=== PATIENT | male | born 1950 | race Hispanic/Latino ===

== ENCOUNTER → 2018-10-20 | Outpatient (CLI) | payer MEDICARE | END | disposition home or self-care (01) | LOC: SHCH 10:02 | PROVIDERS: ATTEND Internal Medicine Cardiovascular Disease | DX: I87.2 Venous insufficiency (chronic) (peripheral) (principal) | CPT/HCPCS: 93970 ==

== ENCOUNTER → 2018-11-28 | Outpatient (CLI) | payer MEDICARE | END | disposition home or self-care (01) | LOC: SHCH 09:53 | PROVIDERS: ATTEND Internal Medicine Cardiovascular Disease | DX: I10 Essential (primary) hypertension (principal); R60.9 Edema, unspecified | CPT/HCPCS: 93306 ==

== ENCOUNTER 2021-04-30 22:53 | Emergency (ER) | payer MEDICARE ==
[~2021-04-30] VITALS: Ht 175.3 cm; Wt 110.7 kg
[2021-04-30 23:04] VITALS: BP 157/82
== END 2021-05-01 00:58 | disposition home or self-care (01) ==
LOC: EDH 23:03
DX: I83.91 Asymptomatic varicose veins of right lower extremity (principal); I10 Essential (primary) hypertension

== ENCOUNTER 2021-10-07 06:39 | Emergency (ER) | payer MEDICARE ==
[~2021-10-07] VITALS: Ht 175.3 cm; Wt 117.9 kg
[2021-10-07 06:48] VITALS: BP 138/76
== END 2021-10-07 07:04 | disposition home or self-care (01) ==
LOC: EDH 06:39
DX: I83.891 Varicose veins of right lower extremity with other complications (principal); I11.0 Hypertensive heart disease with heart failure; I50.9 Heart failure, unspecified

== ENCOUNTER 2021-11-02 20:46 | Emergency (ER) | payer MEDICARE ==
[~2021-11-02] VITALS: Ht 175.3 cm; Wt 124.3 kg
[2021-11-02] MEDS ORDERED: ACETAMINOPHEN 325 MG TAB PO ONE (21:30)
[2021-11-02 21:37] LABS: BASOPHILS % (AUTO) 0.5 % (0.0-5.0); EOSINOPHILS % (AUTO) 2.3 % (0.0-8.0); HEMATOCRIT 42.4 % (42-54); LYMPHOCYTES % (AUTO) 16.5 % (21.0-51.0); MEAN CORPUSCULAR HEMOGLOBIN 30.1 pg (27.0-33.0); MEAN CORPUSCULAR HGB CONC 32.5 g/dL (32.0-36.0); MEAN CORPUSCULAR VOLUME 92.6 fL (79-99); MONOCYTES % (AUTO) 10.2 % (3.0-13.0); NEUTROPHILS % (AUTO) 70.2 % (40.0-77.0); PLATELET COUNT (AUTO) 226 K/uL (130-400); RED BLOOD CELL COUNT(AUTO) 4.58 MIL/uL (4.50-6.20); RED CELL DISTRIBUTION WIDTH 13.8 % (11.0-15.5); WHITE BLOOD COUNT (AUTO) 7.9 K/uL (4.8-10.8)
[2021-11-02 21:54] LABS: APPEARANCE,URINE Cloudy (CLEAR); BILIRUBIN,URINE Negative (NEGATIVE); COLOR,URINE Dark Yellow (YELLOW); GLUCOSE, URINE (UA) Negative (NEGATIVE); KETONES,URINE Negative (NEGATIVE); LEUKOCYTE ESTERASE ,URINE Small (NEGATIVE); NITRATE,URINE Negative (NEGATIVE); OCCULT BLOOD,URINE Nonhemolyzed Trace (NEGATIVE); PH,URINE 5.5 (5.0-8.0); PROTEIN,URINE Negative (NEGATIVE)
[2021-11-02 21:57] LABS: CREATININE 1.1 mg/dL (0.5-1.5); POTASSIUM 4.7 mmol/L (3.5-5.1)
[2021-11-02 22:00] LABS: ALBUMIN 3.5 g/dL (3.5-5.0); BILIRUBIN,TOTAL 0.6 mg/dL (0.2-1.0); TOTAL PROTEIN, SERUM 7.4 g/dL (6.0-8.3)
[2021-11-02] MEDS ORDERED: HYDRALAZINE HCL 10 MG TABLET PO SCH (22:00)
[2021-11-02 22:01] LABS: B-TYPE NATRIURETIC PEPTIDE 95 pg/mL (0-100)
[2021-11-02 22:02] LABS: BACTERIA,URINE Few /HPF (None Seen); RBC,URINE 0-1 /HPF (0-1); SQUAMOUS EPITHELIAL CELL,UR Few /HPF (0-2); YEAST,URINE BUDDING Rare /HPF (None Seen)
[2021-11-02 22:04] LABS: MUCUS,URINE Moderate LPF (None Seen)
[2021-11-02 22:08] VITALS: BP 142/78
[2021-11-02] MEDS ORDERED: FLUCONAZOLE 100 MG TAB PO ONE (22:30)
== END 2021-11-02 22:54 | disposition home or self-care (01) ==
LOC: EDH 20:46
DX: I11.0 Hypertensive heart disease with heart failure (principal); I50.9 Heart failure, unspecified; R60.0 Localized edema
CPT/HCPCS: 36415; 80053; 81001; 83880; 84484; 85025; 87088

== ENCOUNTER 2022-07-19 11:00 | Emergency (ER) | payer MEDICARE ==
[~2022-07-19] VITALS: Ht 175.3 cm; Wt 120.7 kg
[2022-07-19 11:53] LABS: BASOPHILS % (AUTO) 0.6 % (0.0-5.0); EOSINOPHILS % (AUTO) 2.1 % (0.0-8.0); HEMATOCRIT 43.5 % (42-54); LYMPHOCYTES % (AUTO) 12.1 % (21.0-51.0); MEAN CORPUSCULAR HEMOGLOBIN 31.7 pg (27.0-33.0); MEAN CORPUSCULAR HGB CONC 34.9 g/dL (32.0-36.0); MEAN CORPUSCULAR VOLUME 90.6 fL (79-99); MONOCYTES % (AUTO) 8.5 % (3.0-13.0); NEUTROPHILS % (AUTO) 76.3 % (40.0-77.0); PLATELET COUNT (AUTO) 307 K/uL (130-400); RED CELL DISTRIBUTION WIDTH 13.2 % (11.0-15.5); WHITE BLOOD COUNT (AUTO) 9.8 K/uL (4.8-10.8)
[2022-07-19 11:59] LABS: APPEARANCE,URINE CLEAR (CLEAR); BILIRUBIN,URINE NEGATIVE (NEGATIVE); COLOR,URINE YELLOW (YELLOW); GLUCOSE, URINE (UA) NEGATIVE (NEGATIVE); KETONES,URINE NEGATIVE (NEGATIVE); LEUKOCYTE ESTERASE ,URINE NEGATIVE (NEGATIVE); NITRATE,URINE NEGATIVE (NEGATIVE); OCCULT BLOOD,URINE NEGATIVE (NEGATIVE); PROTEIN,URINE NEGATIVE (NEGATIVE); UROBILINOGEN,URINE 0.2 mg/dL (0.2-1.0)
[2022-07-19 12:07] LABS: ALBUMIN 3.6 g/dL (3.5-5.0); POTASSIUM 4.5 mmol/L (3.5-5.1); TOTAL PROTEIN, SERUM 7.5 g/dL (6.0-8.3)
[2022-07-19 12:29] LABS: B-TYPE NATRIURETIC PEPTIDE 20 pg/mL (0-100)
[2022-07-19 12:39] VITALS: BP 132/74
[2022-07-19] MEDS ORDERED: 0.9% NACL 500ML IV.SOLN 500 ML IV ONE (13:30)
[2022-07-19] MEDS ORDERED: IPRATROPIUM/ALBUTEROL SULFATE 3 ML SOLUTION IH ONE (14:00)
[2022-07-19] MEDS ORDERED: AMOX1TAB16 PO (14:17)
== END 2022-07-19 14:25 | disposition home or self-care (01) ==
LOC: EDH 11:00
DX: R06.02 Shortness of breath (principal); H66.91 Otitis media, unspecified, right ear; Z20.822 Contact with and (suspected) exposure to COVID-19; E78.00 Pure hypercholesterolemia, unspecified; I10 Essential (primary) hypertension; E86.0 Dehydration
CPT/HCPCS: 99285; 84484; 80053; 83880; 85025; 81003; 36415; 87635; 71045; 96360; 93005; C9803; J7040

== ENCOUNTER → 2022-10-26 | Outpatient (CLI) | payer MEDICARE ==
[~2022-10-26] MED LIST: AMOX1TAB16 PO; IOHEXOL 350 MG/ML 100ML INFUS..BTL IV ONE
== END | disposition home or self-care (01) ==
LOC: RAH 07:29
PROVIDERS: ATTEND Internal Medicine
DX: C20 Malignant neoplasm of rectum (principal); K43.9 Ventral hernia without obstruction or gangrene
CPT/HCPCS: 71270; 74178; Q9967

== ENCOUNTER → 2022-11-09 | Outpatient (CLI) | payer MEDICARE ==
[~2022-11-09] MED LIST changes: +GADOTERATE MEGLUMINE 10 MMOL/20 ML VIAL IV ONE; -IOHEXOL 350 MG/ML 100ML INFUS..BTL IV ONE
== END | disposition home or self-care (01) ==
LOC: RAH 11:19
PROVIDERS: ATTEND Internal Medicine Gastroenterology
DX: C20 Malignant neoplasm of rectum (principal); K62.4 Stenosis of anus and rectum; M25.451 Effusion, right hip
CPT/HCPCS: 72197; A9575

== ENCOUNTER 2024-01-24 10:49 | Observation (INO) | payer MEDICARE ==
[~2024-01-24] VITALS: Ht 175.3 cm; Wt 103.8 kg
[~2024-01-24 10:49] MED LIST changes: -GADOTERATE MEGLUMINE 10 MMOL/20 ML VIAL IV ONE
[2024-01-24 11:49] LABS: BASOPHILS # (AUTO) 0.02 K/uL (0.00-0.20); BASOPHILS % (AUTO) 0.4 % (0.0-5.0); EOSINOPHILS # (AUTO) 0.17 K/uL (0.00-0.70); HEMATOCRIT 40.6 % (42-54); IMMATURE GRANULOCYTE ABSOLUTE 0.01 K/uL (0-1); LYMPHOCYTES # (AUTO) 0.5 K/uL (1.0-4.8); LYMPHOCYTES % (AUTO) 8.9 % (21.0-51.0); MEAN CORPUSCULAR HEMOGLOBIN 33.6 pg (27.0-33.0); MEAN CORPUSCULAR HGB CONC 33.5 g/dL (32.0-36.0); MEAN CORPUSCULAR VOLUME 100.2 fL (79-99); MONOCYTES # (AUTO) 0.6 K/uL (0.1-1.0); MONOCYTES % (AUTO) 10.4 % (3.0-13.0); NEUTROPHILS # (AUTO) 4.3 K/uL (1.8-7.7); NEUTROPHILS % (AUTO) 77.1 % (40.0-77.0); PLATELET COUNT (AUTO) 198 K/uL (130-400); RED BLOOD CELL COUNT(AUTO) 4.05 MIL/uL (4.50-6.20); RED CELL DISTRIBUTION WIDTH 12.9 % (11.0-15.5); WHITE BLOOD COUNT (AUTO) 5.6 K/uL (4.8-10.8)
[2024-01-24] MEDS ORDERED: CARB100T52 PO (11:51)
[2024-01-24] MEDS ORDERED: LISI20TA24 PO (11:51)
[2024-01-24] MEDS ORDERED: METO2.5T2 PO (11:51)
[2024-01-24] MEDS ORDERED: FURO40TA5 PO (11:51)
[2024-01-24] MEDS ORDERED: ONDA-105 PO (11:51)
[2024-01-24 11:59] LABS: CREATININE 0.7 mg/dL (0.5-1.5); POTASSIUM 3.8 mmol/L (3.5-5.1)
[2024-01-24] MEDS ORDERED: ONDANSETRON 4MG TABLET PO PRN (12:00)
[2024-01-24 12:12] LABS: ALBUMIN 3.1 g/dL (3.5-5.0); B-TYPE NATRIURETIC PEPTIDE 56 pg/mL (0-100); BILIRUBIN,DIRECT 0.1 mg/dL (0.0-0.3); BILIRUBIN,TOTAL 0.3 mg/dL (0.2-1.0); THYROID STIMULATING HORMONE 2.55 uIU/mL (0.36-3.74)
[2024-01-24 16:00] VITALS: O2SAT 98
[2024-01-24 16:25] VITALS: BP 149/96; PULSE 100; RESP 17
[2024-01-24] MEDS: METOPROLOL TARTRATE 25 MG TAB PO SCH (16:47)
[2024-01-24 19:25] VITALS: BP 133/79; PULSE 91; RESP 18
[2024-01-24] MEDS: HEPARIN 25,000 UNITS/250ML D5W 250 ML IV SCH (20:35)
[2024-01-24] MEDS: HEPARIN 5,000 UNIT VIAL IV PRN (20:39)
[2024-01-24] MEDS: CARBAMAZEPINE 100 MG PO SCH (20:59)
[2024-01-25] VITALS (10 sets, daily range): BP systolic 108–157; BP diastolic 68–108; PULSE 46–104; RESP 18–20; O2SAT 97–98
[2024-01-25 02:37] LABS: BASOPHILS # (AUTO) 0.03 K/uL (0.00-0.20); BASOPHILS % (AUTO) 0.5 % (0.0-5.0); EOSINOPHILS # (AUTO) 0.25 K/uL (0.00-0.70); EOSINOPHILS % (AUTO) 4.4 % (0.0-8.0); HEMATOCRIT 38.3 % (42-54); IMMATURE GRANULOCYTE ABSOLUTE 0.03 K/uL (0-1); LYMPHOCYTES # (AUTO) 0.6 K/uL (1.0-4.8); LYMPHOCYTES % (AUTO) 9.7 % (21.0-51.0); MEAN CORPUSCULAR HEMOGLOBIN 33.6 pg (27.0-33.0); MEAN CORPUSCULAR HGB CONC 34.5 g/dL (32.0-36.0); MEAN CORPUSCULAR VOLUME 97.5 fL (79-99); MONOCYTES # (AUTO) 0.6 K/uL (0.1-1.0); MONOCYTES % (AUTO) 10.6 % (3.0-13.0); NEUTROPHILS # (AUTO) 4.2 K/uL (1.8-7.7); NEUTROPHILS % (AUTO) 74.3 % (40.0-77.0); PLATELET COUNT (AUTO) 198 K/uL (130-400); RED BLOOD CELL COUNT(AUTO) 3.93 MIL/uL (4.50-6.20); RED CELL DISTRIBUTION WIDTH 12.8 % (11.0-15.5); WHITE BLOOD COUNT (AUTO) 5.7 K/uL (4.8-10.8)
[2024-01-25 02:45] LABS: CREATININE 0.7 mg/dL (0.5-1.5); MAGNESIUM 1.7 mg/dL (1.80-2.40); POTASSIUM 3.8 mmol/L (3.5-5.1)
[2024-01-25] MEDS: FUROSEMIDE 40 MG TABLET PO SCH (09:10)
[2024-01-25] MEDS: LISINOPRIL 20 MG TABLET PO SCH (09:10)
[2024-01-25] MEDS: METOLAZONE 2.5 MG TABLET PO SCH (09:10)
[2024-01-25] MEDS: METOPROLOL SUCCINATE 50 MG TAB.SR.24H PO ONE (14:03)
[2024-01-25] MEDS: HEPARIN 25,000 UNITS/250ML D5W 250 ML IV ONE (14:13)
[2024-01-25] MEDS: APIXABAN 5 MG TABLET PO SCH (20:28)
[2024-01-26 03:40] VITALS: BP 112/74; PULSE 67; RESP 18
[2024-01-26 04:43] LABS: BASOPHILS # (AUTO) 0.03 K/uL (0.00-0.20); BASOPHILS % (AUTO) 0.5 % (0.0-5.0); EOSINOPHILS # (AUTO) 0.21 K/uL (0.00-0.70); EOSINOPHILS % (AUTO) 3.5 % (0.0-8.0); IMMATURE GRANULOCYTE ABSOLUTE 0.02 K/uL (0-1); LYMPHOCYTES # (AUTO) 0.5 K/uL (1.0-4.8); LYMPHOCYTES % (AUTO) 8.8 % (21.0-51.0); MEAN CORPUSCULAR HGB CONC 33.6 g/dL (32.0-36.0); MEAN CORPUSCULAR VOLUME 98.4 fL (79-99); MONOCYTES # (AUTO) 0.8 K/uL (0.1-1.0); MONOCYTES % (AUTO) 13.1 % (3.0-13.0); NEUTROPHILS # (AUTO) 4.4 K/uL (1.8-7.7); NEUTROPHILS % (AUTO) 73.8 % (40.0-77.0); PLATELET COUNT (AUTO) 226 K/uL (130-400); RED BLOOD CELL COUNT(AUTO) 4.27 MIL/uL (4.50-6.20); RED CELL DISTRIBUTION WIDTH 12.9 % (11.0-15.5)
[2024-01-26 04:53] LABS: CREATININE 0.8 mg/dL (0.5-1.5); MAGNESIUM 1.9 mg/dL (1.80-2.40); POTASSIUM 3.8 mmol/L (3.5-5.1)
[2024-01-26 08:00] VITALS: BP 139/63; PULSE 54; RESP 20; O2SAT 97
[2024-01-26] MEDS ORDERED: POTASSIUM CHLORIDE 20MEQ/100ML 100 ML IV PRN (08:00)
[2024-01-26] MEDS ORDERED: POTASSIUM CHLORIDE 10% ELIXIR 20 MEQ/15 ML UDCUP PO PRN (08:00)
[2024-01-26] MEDS ORDERED: MAGNESIUM 2GM PREMIX 50ML 50 ML IV PRN (08:00)
[2024-01-26] MEDS: METOPROLOL SUCCINATE 50 MG TAB.SR.24H PO SCH (08:33)
[2024-01-26] MEDS: KCL 20 MEQ ERTAB PO PRN (08:33)
[2024-01-26] MEDS ORDERED: APIX5TAB PO (10:45)
[2024-01-26] MEDS ORDERED: METO-391 PO (10:45)
== END 2024-01-26 11:15 | disposition home or self-care (01) ==
LOC: EDH 10:49 → EDHIP 11:11 → 3AH 14:54
PROVIDERS: ADMIT Internal Medicine; ATTEND Internal Medicine
DX: I48.3 Typical atrial flutter (principal); E87.1 Hypo-osmolality and hyponatremia; I11.9 Hypertensive heart disease without heart failure; E78.5 Hyperlipidemia, unspecified; I87.2 Venous insufficiency (chronic) (peripheral); J44.9 Chronic obstructive pulmonary disease, unspecified; C18.9 Malignant neoplasm of colon, unspecified; D64.9 Anemia, unspecified; E66.9 Obesity, unspecified; Z68.33 Body mass index [BMI] 33.0-33.9, adult
CPT/HCPCS: 96376; 96365; 96366 ×3; 84443; 80076; 80048 ×3; 83880; 85025 ×3; 85730 ×4; 36415 ×3; 71046; 93306; 93005; 83735 ×2; G0378 ×46; G0379; J1644 ×4

== ENCOUNTER → 2024-01-31 | Outpatient (CLI) | payer MEDICARE ==
[~2024-01-31] MED LIST changes: -AMOX1TAB16 PO; +APIX5TAB PO; +CARB100T52 PO; +FURO40TA5 PO; +LISI20TA24 PO; +METO-391 PO
[2024-01-31] MEDS: REGADENOSON 0.4 MG/5 ML PF SYG IVP ONE (09:22)
== END ==
LOC: SHCH 08:03
PROVIDERS: ATTEND Internal Medicine Cardiovascular Disease
DX: I25.10 Atherosclerotic heart disease of native coronary artery without angina pectoris (principal)
CPT/HCPCS: 78452; 96374; 93017; J2785; A9500 ×2

== ENCOUNTER 2024-06-06 18:39 | Emergency (ER) | payer MEDICARE ==
[~2024-06-06] VITALS: Ht 175.3 cm; Wt 97.1 kg
[~2024-06-06 18:39] MED LIST changes: -CARB100T52 PO; +CARB100T61 PO; +DIPH-1150 PO; -FURO40TA5 PO; +FURO40TA7 PO; +METO2.5T2 PO; +ONDA-245 SL
[2024-06-06] MEDS: MORPHINE 4 MG SYG IVP ONE (19:59)
[2024-06-06] MEDS: ONDANSETRON 4MG INJ IVP ONE (19:59)
[2024-06-06 20:07] LABS: BASOPHILS # (AUTO) 0.03 K/uL (0.00-0.20); BASOPHILS % (AUTO) 0.4 % (0.0-5.0); EOSINOPHILS # (AUTO) 0.58 K/uL (0.00-0.70); EOSINOPHILS % (AUTO) 7.7 % (0.0-8.0); IMMATURE GRANULOCYTE ABSOLUTE 0.06 K/uL (0-1); LYMPHOCYTES # (AUTO) 0.5 K/uL (1.0-4.8); LYMPHOCYTES % (AUTO) 6.6 % (21.0-51.0); MEAN CORPUSCULAR HEMOGLOBIN 30.9 pg (27.0-33.0); MEAN CORPUSCULAR HGB CONC 33.1 g/dL (32.0-36.0); MEAN CORPUSCULAR VOLUME 93.3 fL (79-99); MONOCYTES # (AUTO) 0.6 K/uL (0.1-1.0); MONOCYTES % (AUTO) 7.4 % (3.0-13.0); NEUTROPHILS # (AUTO) 5.8 K/uL (1.8-7.7); NEUTROPHILS % (AUTO) 77.1 % (40.0-77.0); PLATELET COUNT (AUTO) 295 K/uL (130-400); RED BLOOD CELL COUNT(AUTO) 3.43 MIL/uL (4.50-6.20); RED CELL DISTRIBUTION WIDTH 13.8 % (11.0-15.5); WHITE BLOOD COUNT (AUTO) 7.6 K/uL (4.8-10.8)
[2024-06-06 20:17] LABS: INR 0.99 (0.85-1.15); PROTHROMBIN TIME 10.7 SEC (9.6-11.6)
[2024-06-06 20:18] LABS: PARTIAL THROMBOPLASTIN TIME 29.4 SEC (26.3-35.5)
[2024-06-06 20:20] LABS: POTASSIUM 4.5 mmol/L (3.5-5.1)
[2024-06-06 20:26] LABS: ALBUMIN 2.8 g/dL (3.5-5.0); BILIRUBIN,TOTAL 0.5 mg/dL (0.2-1.0)
[2024-06-06 20:54] VITALS: BP 116/54; PULSE 67; RESP 17; O2SAT 98
== END 2024-06-06 21:14 | disposition home or self-care (01) ==
LOC: EDH 18:39
DX: K94.09 Other complications of colostomy (principal)
CPT/HCPCS: 99284; 96374; 96375; 84484; 80053; 85025; 85610; 85730; 36415; 93005; J2405; J2270

== ENCOUNTER 2024-06-08 13:55 | Emergency (ER) | payer MEDICARE ==
[~2024-06-08] VITALS: Ht 175.3 cm; Wt 98.4 kg
[2024-06-08 15:10] LABS: BASOPHILS # (AUTO) 0.05 K/uL (0.00-0.20); BASOPHILS % (AUTO) 0.7 % (0.0-5.0); EOSINOPHILS # (AUTO) 0.44 K/uL (0.00-0.70); EOSINOPHILS % (AUTO) 6.2 % (0.0-8.0); HEMATOCRIT 32.4 % (42-54); IMMATURE GRANULOCYTE ABSOLUTE 0.08 K/uL (0-1); LYMPHOCYTES # (AUTO) 0.6 K/uL (1.0-4.8); MEAN CORPUSCULAR HEMOGLOBIN 31.1 pg (27.0-33.0); MEAN CORPUSCULAR HGB CONC 32.4 g/dL (32.0-36.0); MEAN CORPUSCULAR VOLUME 95.9 fL (79-99); MONOCYTES # (AUTO) 0.5 K/uL (0.1-1.0); MONOCYTES % (AUTO) 7.4 % (3.0-13.0); NEUTROPHILS # (AUTO) 5.5 K/uL (1.8-7.7); NEUTROPHILS % (AUTO) 76.6 % (40.0-77.0); PLATELET COUNT (AUTO) 339 K/uL (130-400); RED BLOOD CELL COUNT(AUTO) 3.38 MIL/uL (4.50-6.20); RED CELL DISTRIBUTION WIDTH 13.9 % (11.0-15.5); WHITE BLOOD COUNT (AUTO) 7.1 K/uL (4.8-10.8)
[2024-06-08 15:19] LABS: POTASSIUM 4.7 mmol/L (3.5-5.1)
[2024-06-08 15:21] LABS: INR 0.97 (0.85-1.15); PROTHROMBIN TIME 10.5 SEC (9.6-11.6)
[2024-06-08 15:22] LABS: PARTIAL THROMBOPLASTIN TIME 27.1 SEC (26.3-35.5)
[2024-06-08] MEDS: HYDROMORPHONE 0.5 MG SYG (0.5MG/0.5ML) IVP ONE (15:56)
[2024-06-08 16:22] VITALS: BP 104/55; PULSE 85; RESP 20; O2SAT 100
== END 2024-06-08 16:42 | disposition home or self-care (01) ==
LOC: EDH 13:55
DX: K94.19 Other complications of enterostomy (principal); I10 Essential (primary) hypertension; Z79.899 Other long term (current) drug therapy; Z98.890 Other specified postprocedural states
CPT/HCPCS: 99283; 96374; 80048; 85025; 85610; 85730; 36415; J1170

== ENCOUNTER 2024-06-08 19:47 | Emergency (ER) | payer MEDICARE ==
[~2024-06-08] VITALS: Ht 175.3 cm; Wt 98.4 kg
[2024-06-08 21:19] VITALS: BP 91/56; PULSE 86; RESP 16; O2SAT 97
== END 2024-06-08 21:40 | disposition home or self-care (01) ==
LOC: EDH 19:47
DX: K94.19 Other complications of enterostomy (principal); I10 Essential (primary) hypertension; Z79.899 Other long term (current) drug therapy; Z98.890 Other specified postprocedural states
CPT/HCPCS: 99281

== ENCOUNTER → 2024-06-25 | Outpatient (CLI) | payer MEDICARE | END | disposition home or self-care (01) | LOC: RAH 08:45 | PROVIDERS: ATTEND Surgery | DX: C20 Malignant neoplasm of rectum (principal); K94.10 Enterostomy complication, unspecified; K63.89 Other specified diseases of intestine | CPT/HCPCS: 74270; Q9958 ==

== ENCOUNTER 2024-06-30 10:02 | Inpatient (IN) | payer MEDICARE ==
[~2024-06-30] VITALS: Ht 175.3 cm; Wt 92.1 kg
[2024-06-30] VITALS (34 sets, daily range): BP systolic 66–147; BP diastolic 40–76; PULSE 63–87; RESP 14–23; O2SAT 94–98
[2024-06-30] MEDS: FAMOTIDINE 20MG VIAL IV ONE (10:51)
[2024-06-30] MEDS: 0.9%NACL 1000ML 1,000 ML IV ONE ×2 (10:51→14:48)
[2024-06-30] MEDS: ONDANSETRON 4MG INJ IVP ONE (10:51)
[2024-06-30 10:55] LABS: BASOPHILS # (AUTO) 0.02 K/uL (0.00-0.20); BASOPHILS % (AUTO) 0.2 % (0.0-5.0); EOSINOPHILS # (AUTO) 0.03 K/uL (0.00-0.70); EOSINOPHILS % (AUTO) 0.3 % (0.0-8.0); HEMATOCRIT 30.5 % (42-54); IMMATURE GRANULOCYTE ABSOLUTE 0.03 K/uL (0-1); LYMPHOCYTES # (AUTO) 0.6 K/uL (1.0-4.8); LYMPHOCYTES % (AUTO) 6.1 % (21.0-51.0); MEAN CORPUSCULAR HEMOGLOBIN 31.2 pg (27.0-33.0); MEAN CORPUSCULAR HGB CONC 33.8 g/dL (32.0-36.0); MEAN CORPUSCULAR VOLUME 92.4 fL (79-99); MONOCYTES # (AUTO) 0.6 K/uL (0.1-1.0); MONOCYTES % (AUTO) 6.4 % (3.0-13.0); NEUTROPHILS # (AUTO) 8.6 K/uL (1.8-7.7); NEUTROPHILS % (AUTO) 86.7 % (40.0-77.0); PLATELET COUNT (AUTO) 265 K/uL (130-400); RED CELL DISTRIBUTION WIDTH 14.1 % (11.0-15.5); WHITE BLOOD COUNT (AUTO) 9.9 K/uL (4.8-10.8)
[2024-06-30 11:08] LABS: ALBUMIN 3.2 g/dL (3.5-5.0); BILIRUBIN,TOTAL 0.3 mg/dL (0.2-1.0); CREATININE 6.9 mg/dL (0.5-1.3); TOTAL PROTEIN, SERUM 7.2 g/dL (6.0-8.3)
[2024-06-30 11:17] LABS: POTASSIUM 8.1 mmol/L (3.5-5.1)
[2024-06-30] MEDS ORDERED: IOHEXOL-350 75 ML VIAL IV ONE (11:31)
[2024-06-30 11:45] LABS: APPEARANCE,URINE CLEAR (CLEAR); BILIRUBIN,URINE NEGATIVE (NEGATIVE); COLOR,URINE LIGHT-YELLOW (YELLOW); GLUCOSE, URINE (UA) NEGATIVE (NEGATIVE); KETONES,URINE NEGATIVE (NEGATIVE); LEUKOCYTE ESTERASE ,URINE NEGATIVE Leu/uL (NEGATIVE); NITRATE,URINE NEGATIVE (NEGATIVE); OCCULT BLOOD,URINE NEGATIVE (NEGATIVE); PROTEIN,URINE 20 mg/dL (NEGATIVE); UROBILINOGEN,URINE 0.2 mg/dL (0.2-1.0)
[2024-06-30 11:47] LABS: ADD UA MICROSCOPIC YES
[2024-06-30 11:53] LABS: BACTERIA,URINE RARE /HPF (None Seen); MUCUS,URINE RARE LPF (None Seen); RBC,URINE 0-1 /HPF (0-1); SQUAMOUS EPITHELIAL CELL,UR RARE /HPF (0-2); WBC,URINE 0-1 /HPF (0-1)
[2024-06-30 11:56] LABS: ALBUMIN 3.1 g/dL (3.5-5.0); BILIRUBIN,TOTAL 0.3 mg/dL (0.2-1.0); CREATININE 6.3 mg/dL (0.5-1.3); TOTAL PROTEIN, SERUM 6.8 g/dL (6.0-8.3)
[2024-06-30 12:03] LABS: POTASSIUM 7.9 mmol/L (3.5-5.1)
[2024-06-30] MEDS: CALCIUM GLUC 1GM 1 GM in 0.9%NACL 100ML 100 ML IV ONE (12:14)
[2024-06-30] MEDS: DEXTROSE 50%-WATER 50 ML DISP.SYRIN IV ONE (12:15)
[2024-06-30] MEDS: DEXTROSE 50%-WATER 25 GM/50 ML VIAL IV ONE (12:16)
[2024-06-30] MEDS: CALCIUM GLUC 1GM/10ML VIAL ONE (12:17)
[2024-06-30] MEDS: INSULIN humuLIN R 100 UNIT/ML 3ML IV ONE (12:22)
[2024-06-30] MEDS: ALBUTEROL 0.083% 2.5 MG/3 ML INH IH SCH (12:25)
[2024-06-30] MEDS: NOREPINEPHRIN 4MG/NS 250ML 250 ML IV SCH (12:32)
[2024-06-30 13:04] LABS: CREATINE KINASE, TOTAL 63 U/L (21-232)
[2024-06-30 13:24] LABS: ACETAMINOPHEN < 1 mcg/mL (10-29); SALICYLATE < 2.8 mg/dL (2.8-20.0)
[2024-06-30 13:24] LABS: AMPHET/METH SCREEN,URINE NEGATIVE (NEGATIVE); BARBITURATE SCREEN, URINE NEGATIVE (NEGATIVE); BENZODIAZEPINES SCREEN,URINE NEGATIVE (NEGATIVE); CANNABINOID SCREEN,URINE NEGATIVE (NEGATIVE); COCAINE SCREEN,URINE POSITIVE (NEGATIVE); OPIATE SCREEN,URINE NEGATIVE (NEGATIVE); PHENCYCLIDINE SCREEN,URINE NEGATIVE (NEGATIVE)
[2024-06-30] MEDS: ZOSYN 3.375GM +NS 50ML IV ONE (14:48)
[2024-06-30] MEDS: 0.9%NACL 1000ML 1,000 ML IV SCH (15:15)
[2024-06-30 15:19] LABS: CREATININE 5.4 mg/dL (0.5-1.3)
[2024-06-30 15:34] LABS: POTASSIUM 6.2 mmol/L (3.5-5.1)
[2024-06-30] MEDS: cefTRIAXone 1G VIAL IVPB SCH (15:40)
[2024-06-30] MEDS: NA ZIRCON CYCLOSIL(LOKELMA 10GM) PO ONE (15:40)
[2024-06-30] MEDS ORDERED: ESOM40CA66 PO (17:09)
[2024-06-30] MEDS ORDERED: DICY20TA3 PO (17:09)
[2024-06-30] MEDS: SODIUM BICARB 8.4% 50ML SYRING 150 MEQ in DEXTROSE 5%-WATER 850 ML IVP SCH (17:13)
[2024-06-30 17:42] LABS: CREATININE 4.8 mg/dL (0.5-1.3)
[2024-06-30] MEDS ORDERED: ONDANSETRON 4MG INJ IVP PRN (19:30)
[2024-06-30] MEDS ORDERED: DEXTROSE 50%-WATER 50 ML DISP.SYRIN IV PRN (19:30)
[2024-06-30] MEDS ORDERED: GLUCAGON 1MG KIT 1 MG ML IM PRN (19:30)
[2024-06-30] MEDS: ZOSYN 3.375GM +NS 50ML IV SCH (20:12)
[2024-06-30] MEDS: INSULIN humuLIN R 100 UNIT/ML 3ML SQ SCH (20:13)
[2024-06-30] MEDS: HEParin 5,000 UNIT VIAL SQ SCH (20:29)
[2024-06-30 20:31] LABS: CREATININE 4.1 mg/dL (0.5-1.3); POTASSIUM 5.2 mmol/L (3.5-5.1)
[2024-06-30 21:03] LABS: CHLORIDE,URINE RANDOM 52 mmol/L (110-250); CREATININE,URINE RANDOM 140.34 mg/dL (30-135); POTASSIUM,URINE RANDOM 47 mmol/L (25-125); SODIUM,URINE RANDOM < 13 mmol/l (40-220)
[2024-07-01] VITALS (103 sets, daily range): BP systolic 61–138; BP diastolic 31–84; PULSE 60–94; RESP 12–28; O2SAT 95–98
[2024-07-01 01:00] LABS: CREATININE 3.3 mg/dL (0.5-1.3); POTASSIUM 4.8 mmol/L (3.5-5.1)
[2024-07-01] MEDS: NOREPINEPHRIN 4MG/NS 250ML 250 ML IV ONE (02:03)
[2024-07-01 04:23] LABS: BASOPHILS # (AUTO) 0.04 K/uL (0.00-0.20); BASOPHILS % (AUTO) 0.5 % (0.0-5.0); EOSINOPHILS # (AUTO) 0.04 K/uL (0.00-0.70); EOSINOPHILS % (AUTO) 0.5 % (0.0-8.0); HEMATOCRIT 28.9 % (42-54); IMMATURE GRANULOCYTE ABSOLUTE 0.03 K/uL (0-1); LYMPHOCYTES # (AUTO) 0.5 K/uL (1.0-4.8); LYMPHOCYTES % (AUTO) 5.9 % (21.0-51.0); MEAN CORPUSCULAR HEMOGLOBIN 31.4 pg (27.0-33.0); MEAN CORPUSCULAR HGB CONC 34.9 g/dL (32.0-36.0); MEAN CORPUSCULAR VOLUME 89.8 fL (79-99); MONOCYTES # (AUTO) 0.8 K/uL (0.1-1.0); NEUTROPHILS # (AUTO) 6.6 K/uL (1.8-7.7); NEUTROPHILS % (AUTO) 82.7 % (40.0-77.0); PLATELET COUNT (AUTO) 247 K/uL (130-400); RED BLOOD CELL COUNT(AUTO) 3.22 MIL/uL (4.50-6.20); RED CELL DISTRIBUTION WIDTH 13.9 % (11.0-15.5)
[2024-07-01 04:56] LABS: B-TYPE NATRIURETIC PEPTIDE 260 pg/mL (0-100)
[2024-07-01 05:09] LABS: ALBUMIN 2.9 g/dL (3.5-5.0); BILIRUBIN,TOTAL 0.5 mg/dL (0.2-1.0); CREATININE 2.8 mg/dL (0.5-1.3); MAGNESIUM 1.4 mg/dL (1.80-2.40); PHOSPHORUS 5.5 mg/dL (2.5-4.9); POTASSIUM 5.1 mmol/L (3.5-5.1); THYROID STIMULATING HORMONE 1.53 uIU/mL (0.36-3.74); TOTAL PROTEIN, SERUM 6.7 g/dL (6.0-8.3)
[2024-07-01] MEDS: NOREPINEPHRIN 4MG/NS 250ML 250 ML IV SCH (06:58)
[2024-07-01 08:36] LABS: CREATININE 2.2 mg/dL (0.5-1.3); POTASSIUM 4.4 mmol/L (3.5-5.1)
[2024-07-01] MEDS: PANTOPRAZOLE 40 MG/VIAL IVP SCH (08:57)
[2024-07-01] MEDS: metOPROLol sucCINATE 50 MG TAB.SR.24H PO SCH (08:58)
[2024-07-01] MEDS: MAGNESIUM 2GM PREMIX 50ML 50 ML IV SCH (09:02)
[2024-07-01] MEDS: 0.9%NACL 1000ML 1,000 ML IV SCH (11:41)
[2024-07-01] MEDS: MIDODRINE HCL 5 MG TABLET PO SCH (14:19)
[2024-07-02] VITALS (52 sets, daily range): BP systolic 77–132; BP diastolic 38–83; PULSE 60–84; RESP 13–50; O2SAT 97–99
[2024-07-02 03:47] LABS: BASOPHILS # (AUTO) 0.03 K/uL (0.00-0.20); BASOPHILS % (AUTO) 0.5 % (0.0-5.0); EOSINOPHILS # (AUTO) 0.08 K/uL (0.00-0.70); EOSINOPHILS % (AUTO) 1.2 % (0.0-8.0); IMMATURE GRANULOCYTE ABSOLUTE 0.03 K/uL (0-1); LYMPHOCYTES # (AUTO) 0.5 K/uL (1.0-4.8); LYMPHOCYTES % (AUTO) 7.1 % (21.0-51.0); MEAN CORPUSCULAR HEMOGLOBIN 30.9 pg (27.0-33.0); MEAN CORPUSCULAR HGB CONC 34.2 g/dL (32.0-36.0); MEAN CORPUSCULAR VOLUME 90.3 fL (79-99); MONOCYTES # (AUTO) 0.7 K/uL (0.1-1.0); MONOCYTES % (AUTO) 11.1 % (3.0-13.0); NEUTROPHILS # (AUTO) 5.2 K/uL (1.8-7.7); NEUTROPHILS % (AUTO) 79.6 % (40.0-77.0); PLATELET COUNT (AUTO) 211 K/uL (130-400); RED BLOOD CELL COUNT(AUTO) 2.88 MIL/uL (4.50-6.20); RED CELL DISTRIBUTION WIDTH 14.3 % (11.0-15.5); WHITE BLOOD COUNT (AUTO) 6.6 K/uL (4.8-10.8)
[2024-07-02 04:05] LABS: % IRON SATURATION 41.9 % (30-44)
[2024-07-02 04:27] LABS: CREATININE 1.4 mg/dL (0.5-1.3); MAGNESIUM 1.5 mg/dL (1.80-2.40); POTASSIUM 4.2 mmol/L (3.5-5.1)
[2024-07-02] MEDS: FOLic ACID 5 MG/ML VIAL IV SCH (08:34)
[2024-07-02] MEDS: THIAMINE HCL 100 MG/ML 2ML VIAL IVP SCH (08:34)
[2024-07-02] MEDS: metOPROLol sucCINATE 50 MG TAB.SR.24H PO SCH (09:00)
[2024-07-02] MEDS: octREOtide aceTATe 100 MCG/ML AMP IV SCH (20:40)
[2024-07-03] VITALS (17 sets, daily range): BP systolic 101–153; BP diastolic 47–77; PULSE 59–81; RESP 14–23; O2SAT 96–98
[2024-07-03 04:49] LABS: BASOPHILS # (AUTO) 0.02 K/uL (0.00-0.20); BASOPHILS % (AUTO) 0.3 % (0.0-5.0); EOSINOPHILS # (AUTO) 0.16 K/uL (0.00-0.70); EOSINOPHILS % (AUTO) 2.1 % (0.0-8.0); HEMATOCRIT 25.3 % (42-54); IMMATURE GRANULOCYTE ABSOLUTE 0.03 K/uL (0-1); LYMPHOCYTES # (AUTO) 0.6 K/uL (1.0-4.8); LYMPHOCYTES % (AUTO) 7.9 % (21.0-51.0); MEAN CORPUSCULAR HEMOGLOBIN 31.5 pg (27.0-33.0); MEAN CORPUSCULAR VOLUME 92.7 fL (79-99); MONOCYTES # (AUTO) 0.7 K/uL (0.1-1.0); MONOCYTES % (AUTO) 9.9 % (3.0-13.0); NEUTROPHILS # (AUTO) 5.9 K/uL (1.8-7.7); NEUTROPHILS % (AUTO) 79.4 % (40.0-77.0); PLATELET COUNT (AUTO) 210 K/uL (130-400); RED BLOOD CELL COUNT(AUTO) 2.73 MIL/uL (4.50-6.20); RED CELL DISTRIBUTION WIDTH 14.4 % (11.0-15.5); WHITE BLOOD COUNT (AUTO) 7.5 K/uL (4.8-10.8)
[2024-07-03 05:06] LABS: CREATININE 1.2 mg/dL (0.5-1.3); MAGNESIUM 1.3 mg/dL (1.80-2.40); PHOSPHORUS 2.7 mg/dL (2.5-4.9); POTASSIUM 3.7 mmol/L (3.5-5.1)
[2024-07-03] MEDS: metOPROLol sucCINATE 25 MG TAB.SR.24H PO SCH (09:00)
[2024-07-04 00:02] VITALS: BP 127/56; PULSE 66; RESP 18
[2024-07-04 04:00] VITALS: BP 124/66; PULSE 69; RESP 18
[2024-07-04 04:13] LABS: BASOPHILS # (AUTO) 0.02 K/uL (0.00-0.20); BASOPHILS % (AUTO) 0.3 % (0.0-5.0); EOSINOPHILS # (AUTO) 0.18 K/uL (0.00-0.70); EOSINOPHILS % (AUTO) 2.7 % (0.0-8.0); HEMATOCRIT 25.2 % (42-54); IMMATURE GRANULOCYTE ABSOLUTE 0.03 K/uL (0-1); LYMPHOCYTES # (AUTO) 0.5 K/uL (1.0-4.8); LYMPHOCYTES % (AUTO) 7.5 % (21.0-51.0); MEAN CORPUSCULAR HEMOGLOBIN 30.3 pg (27.0-33.0); MEAN CORPUSCULAR HGB CONC 32.9 g/dL (32.0-36.0); MONOCYTES # (AUTO) 0.6 K/uL (0.1-1.0); MONOCYTES % (AUTO) 9.1 % (3.0-13.0); NEUTROPHILS # (AUTO) 5.4 K/uL (1.8-7.7); PLATELET COUNT (AUTO) 238 K/uL (130-400); RED BLOOD CELL COUNT(AUTO) 2.74 MIL/uL (4.50-6.20); RED CELL DISTRIBUTION WIDTH 14.1 % (11.0-15.5); WHITE BLOOD COUNT (AUTO) 6.8 K/uL (4.8-10.8)
[2024-07-04 04:31] LABS: MAGNESIUM 1.3 mg/dL (1.80-2.40); PHOSPHORUS 2.1 mg/dL (2.5-4.9)
[2024-07-04 07:00] VITALS: BP 136/56; PULSE 69; RESP 20
[2024-07-04 08:00] VITALS: O2SAT 98
[2024-07-04] MEDS ORDERED: COMPOUND IV REFRIGERATED 1 EACH IVSOLN MISC PRN (08:30)
[2024-07-04] MEDS ORDERED: COMPOUND IV MISC 1 EACH IVSOLN MISC PRN (08:30)
[2024-07-04 11:00] VITALS: BP 138/64; PULSE 75; RESP 20
== END 2024-07-04 13:25 | disposition home or self-care (01) | DRG 682 ==
LOC: EDH 10:02 → EDHIP 14:42 → 2CH 15:40 → 2DH 07-03 18:47
PROVIDERS: ADMIT Internal Medicine; ATTEND Internal Medicine
DX: N17.9 Acute kidney failure, unspecified (principal); K85.90 Acute pancreatitis without necrosis or infection, unspecified; R57.1 Hypovolemic shock; I50.32 Chronic diastolic (congestive) heart failure; I13.0 Hypertensive heart and chronic kidney disease with heart failure and stage 1 through stage 4 chronic kidney disease, or unspecified chronic kidney disease; E87.20 Acidosis, unspecified; E87.1 Hypo-osmolality and hyponatremia; E86.0 Dehydration; E87.5 Hyperkalemia; N18.30 Chronic kidney disease, stage 3 unspecified; I48.91 Unspecified atrial fibrillation; I87.2 Venous insufficiency (chronic) (peripheral); E78.5 Hyperlipidemia, unspecified; K59.00 Constipation, unspecified; I25.10 Atherosclerotic heart disease of native coronary artery without angina pectoris; I95.9 Hypotension, unspecified; F14.10 Cocaine abuse, uncomplicated; E66.9 Obesity, unspecified; D63.8 Anemia in other chronic diseases classified elsewhere; E88.09 Other disorders of plasma-protein metabolism, not elsewhere classified; E87.6 Hypokalemia; E87.8 Other disorders of electrolyte and fluid balance, not elsewhere classified; Z68.32 Body mass index [BMI] 32.0-32.9, adult; Z93.2 Ileostomy status; Z93.3 Colostomy status; Z92.3 Personal history of irradiation; Z85.048 Personal history of other malignant neoplasm of rectum, rectosigmoid junction, and anus; Z79.01 Long term (current) use of anticoagulants; Z92.21 Personal history of antineoplastic chemotherapy; Z79.899 Other long term (current) drug therapy
CPT/HCPCS: 36415; 71045; 74176; 80048; 80051; 80053; 80061; 80305; 81001; 82150; 82550; 82570; 82728; 82948; 83540; 83550; 83690; 83735; 83880; 83935; 84100; 84145; 84443; 84484; 84540; 85025; 87040; 87086; 93005; 93306; 93356; 94640; 99291; A4344; G0378; G0481; J0612; J0696; J1644; J1815; J2354; J2405; J2470; J2543; J3411; J3475; J3490; J7030; J7070; Q9967

== ENCOUNTER 2024-07-18 07:21 | Day surgery (SDC) | payer MEDICARE ==
[~2024-07-18] VITALS: Ht 175.3 cm; Wt 98.9 kg
[2024-07-18] VITALS (10 sets, daily range): BP systolic 87–116; BP diastolic 48–68; PULSE 63–76; RESP 14–18; TEMP 96–97.8
[2024-07-18] MEDS: 0.9%NACL 1000ML 1,000 ML IV ONE (08:00)
[2024-07-18] MEDS ORDERED: CARB100T61 PO (08:07)
[2024-07-18] MEDS ORDERED: METO-391 PO (08:07)
[2024-07-18] MEDS ORDERED: FURO40TA5 PO (08:07)
[2024-07-18] MEDS ORDERED: DIPH-1150 PO (08:07)
[2024-07-18] MEDS ORDERED: APIX5TAB PO (08:07)
[2024-07-18] MEDS ORDERED: LIDOCAINE PF 100MG/5ML (2%) SYRINGE 5ML ONE (09:12)
[2024-07-18] MEDS ORDERED: proPOFol 10 MG/ML 20ML VIAL IV ONE (09:12)
[2024-07-18] MEDS ORDERED: LISI20TA24 PO (10:09)
== END 2024-07-18 10:35 | disposition home or self-care (01) ==
LOC: DAH 07:21 → ENDO 07:21
PROVIDERS: ATTEND Surgery
DX: C20 Malignant neoplasm of rectum (principal); R93.3 Abnormal findings on diagnostic imaging of other parts of digestive tract; I10 Essential (primary) hypertension; E66.9 Obesity, unspecified; J44.9 Chronic obstructive pulmonary disease, unspecified; K94.10 Enterostomy complication, unspecified; Z68.31 Body mass index [BMI] 31.0-31.9, adult; Z79.899 Other long term (current) drug therapy
CPT/HCPCS: 45330; J7030; J2001; J2704; A4620; A4615; A4215 ×2; A4223; A4222; A4221; A4663; A4606; J3490

== ENCOUNTER 2024-08-01 14:05 | Inpatient (IN) | payer MEDICARE ==
[2024-07-31 11:19] LABS: BASOPHILS # (AUTO) 0.02 K/uL (0.00-0.20); BASOPHILS % (AUTO) 0.3 % (0.0-5.0); EOSINOPHILS # (AUTO) 0.15 K/uL (0.00-0.70); EOSINOPHILS % (AUTO) 2.3 % (0.0-8.0); IMMATURE GRANULOCYTE ABSOLUTE 0.03 K/uL (0-1); LYMPHOCYTES # (AUTO) 0.7 K/uL (1.0-4.8); LYMPHOCYTES % (AUTO) 10.2 % (21.0-51.0); MEAN CORPUSCULAR HEMOGLOBIN 31.4 pg (27.0-33.0); MEAN CORPUSCULAR HGB CONC 31.5 g/dL (32.0-36.0); MEAN CORPUSCULAR VOLUME 99.7 fL (79-99); MONOCYTES # (AUTO) 0.5 K/uL (0.1-1.0); MONOCYTES % (AUTO) 7.7 % (3.0-13.0); NEUTROPHILS # (AUTO) 5.1 K/uL (1.8-7.7); PLATELET COUNT (AUTO) 247 K/uL (130-400); RED BLOOD CELL COUNT(AUTO) 3.31 MIL/uL (4.50-6.20); WHITE BLOOD COUNT (AUTO) 6.5 K/uL (4.8-10.8)
[2024-07-31 11:25] LABS: INR 0.95 (0.85-1.15); PROTHROMBIN TIME 10.3 SEC (9.6-11.6)
[2024-07-31 11:26] LABS: PARTIAL THROMBOPLASTIN TIME 29.2 SEC (26.3-35.5)
[2024-07-31 11:27] LABS: ALBUMIN 3.2 g/dL (3.5-5.0); BILIRUBIN,TOTAL 0.4 mg/dL (0.2-1.0); CREATININE 0.8 mg/dL (0.5-1.3); POTASSIUM 4.6 mmol/L (3.5-5.1); TOTAL PROTEIN, SERUM 7.2 g/dL (6.0-8.3)
[2024-07-31 11:41] VITALS: BP 155/75; PULSE 71; RESP 18; TEMP 98.2
[~2024-08-01] VITALS: Ht 175.3 cm; Wt 98.5 kg
[~2024-08-01 14:05] MED LIST changes: -DIPH-1150 PO; +FURO40TA5 PO; -FURO40TA7 PO; -METO2.5T2 PO; -ONDA-245 SL
[2024-08-08] VITALS (22 sets, daily range): BP systolic 111–133; BP diastolic 53–72; PULSE 60–79; RESP 15–20; TEMP 97.5–98.1
[2024-08-08] MEDS ORDERED: BUPIvacaine/PF 0.5% 30ML VIAL ONE (10:30)
[2024-08-08] MEDS ORDERED: LIDOCAINE 1%-EPI 1:100,000 20 ML VIAL ONE (10:30)
[2024-08-08] MEDS ORDERED: LIDOCAINE PF 100MG/5ML (2%) SYRINGE 5ML ONE ×2 (10:58→12:28)
[2024-08-08] MEDS ORDERED: proPOFol 10 MG/ML 20ML VIAL IV ONE ×2 (10:58→12:29)
[2024-08-08] MEDS ORDERED: rocuRONium bROMide 10MG/1ML 5ML VL ONE ×2 (10:58→12:29)
[2024-08-08] MEDS ORDERED: FENTanyl CITRate PF 50 MCG/1 ML 2ML VIAL ONE ×2 (10:59→12:29)
[2024-08-08] MEDS: INVANZ 1GM+NS 50ML IVPB 50 ML IV ONE ×2 (11:00→17:55)
[2024-08-08] MEDS: LACTATED RINGERS 1000ML 1,000 ML IV ONE (11:22)
[2024-08-08] MEDS ORDERED: dexaMETHasone SOD PHOSPHATE 10MG/ML 1ML VIAL ONE ×2 (12:28→17:00)
[2024-08-08] MEDS ORDERED: SUCCINYLCHOLINE CHLORIDE 20 MG/ML 10 ML VIAL ONE (12:29)
[2024-08-08] MEDS ORDERED: MIDAZOLAM HCL 1 MG/ML 2ML VIAL ONE ×2 (12:29→16:08)
[2024-08-08] MEDS ORDERED: GLYCOPYRROLATE 0.2 MG/ML 5 ML VIAL ONE ×2 (12:29→17:11)
[2024-08-08] MEDS ORDERED: ondanSETRON 4MG INJ ONE ×2 (12:29→17:01)
[2024-08-08] MEDS ORDERED: NEOSTIGMINE METHYLSULFATE 1MG/ML IV ONE ×2 (12:29→17:11)
[2024-08-08] MEDS ORDERED: ketaMINE 50MG/ML SYRINGE 50 MG/ML DISP.SYRIN ONE (13:21)
[2024-08-08] MEDS ORDERED: ALBUMIN (HUMAN) 5% 250 ML IV ONE ×2 (13:22→16:35)
[2024-08-08 13:34] LABS: CREATININE 0.7 mg/dL (0.5-1.3); POTASSIUM 4.1 mmol/L (3.5-5.1)
[2024-08-08] MEDS ORDERED: morPHINE 2 MG SYG IV PRN (16:00)
[2024-08-08] MEDS ORDERED: ondanSETRON 4MG INJ IVP PRN (16:00)
[2024-08-08] MEDS ORDERED: HYDROcodone/APAP 5/325 1 TAB TABLET PO PRN (16:00)
[2024-08-08] MEDS ORDERED: acetaMINOPHEN 325 MG TAB PO PRN (16:00)
[2024-08-08] MEDS ORDERED: INSULIN humuLIN R 100 UNIT/ML 3ML SQ PRN (16:00)
[2024-08-08] MEDS: BUPIvacaine/PF 0.5% 30ML VIAL ONE (16:41)
[2024-08-08] MEDS: LIDOCAINE 1%-EPI 1:100,000 20 ML VIAL ONE (16:41)
[2024-08-08] MEDS: acetaMINOPHEN 1,000 MG/100 ML VIAL IV ONE (17:55)
[2024-08-08] MEDS: FAMOTIDINE 20MG VIAL IV ONE (17:56)
[2024-08-08] MEDS: FAMOTIDINE 20MG VIAL IV SCH (19:57)
[2024-08-08] MEDS: D5W-1/2 NS/20MEQ KCL 1,000 ML IV SCH (19:58)
[2024-08-09] VITALS (9 sets, daily range): BP systolic 118–148; BP diastolic 60–72; PULSE 72–79; RESP 18–24; TEMP 97.8–98.3; O2SAT 94–95
[2024-08-09 06:06] LABS: BASOPHILS # (AUTO) 0.01 K/uL (0.00-0.20); BASOPHILS % (AUTO) 0.1 % (0.0-5.0); HEMATOCRIT 31.3 % (42-54); IMMATURE GRANULOCYTE ABSOLUTE 0.03 K/uL (0-1); LYMPHOCYTES # (AUTO) 0.3 K/uL (1.0-4.8); MEAN CORPUSCULAR HEMOGLOBIN 31.5 pg (27.0-33.0); MEAN CORPUSCULAR HGB CONC 31.9 g/dL (32.0-36.0); MEAN CORPUSCULAR VOLUME 98.7 fL (79-99); MONOCYTES # (AUTO) 0.3 K/uL (0.1-1.0); MONOCYTES % (AUTO) 4.4 % (3.0-13.0); NEUTROPHILS % (AUTO) 91.1 % (40.0-77.0); PLATELET COUNT (AUTO) 277 K/uL (130-400); RED BLOOD CELL COUNT(AUTO) 3.17 MIL/uL (4.50-6.20); RED CELL DISTRIBUTION WIDTH 15.1 % (11.0-15.5); WHITE BLOOD COUNT (AUTO) 7.7 K/uL (4.8-10.8)
[2024-08-09 06:21] LABS: CREATININE 0.8 mg/dL (0.5-1.3); POTASSIUM 4.4 mmol/L (3.5-5.1)
[2024-08-09] MEDS: ENOXAPARIN SODIUM 40 MG/0.4 ML SYRINGE SQ SCH (09:03)
[2024-08-09] MEDS: metOPROLol sucCINATE 50 MG TAB.SR.24H PO SCH (09:04)
[2024-08-09] MEDS: LISINOPRIL 20 MG TABLET PO SCH (09:04)
[2024-08-09] MEDS: furoSEMIDE 40 MG TABLET PO SCH (09:04)
[2024-08-09] MEDS ORDERED: PHARMACY COMMUNICATION 1 EACH EACH MISC SCH (17:00)
[2024-08-09] MEDS: morPHINE 4 MG SYG IV PRN (21:15)
[2024-08-10] VITALS: BP 124/66; PULSE 66; RESP 22; TEMP 98
[2024-08-10 04:00] VITALS: BP 134/73; PULSE 75; RESP 20; TEMP 98.3
[2024-08-10 05:00] LABS: BASOPHILS # (AUTO) 0.02 K/uL (0.00-0.20); BASOPHILS % (AUTO) 0.2 % (0.0-5.0); EOSINOPHILS # (AUTO) 0.02 K/uL (0.00-0.70); EOSINOPHILS % (AUTO) 0.2 % (0.0-8.0); HEMATOCRIT 32.6 % (42-54); IMMATURE GRANULOCYTE ABSOLUTE 0.03 K/uL (0-1); LYMPHOCYTES # (AUTO) 0.4 K/uL (1.0-4.8); LYMPHOCYTES % (AUTO) 5.1 % (21.0-51.0); MEAN CORPUSCULAR HEMOGLOBIN 32.8 pg (27.0-33.0); MEAN CORPUSCULAR HGB CONC 33.4 g/dL (32.0-36.0); MEAN CORPUSCULAR VOLUME 98.2 fL (79-99); MONOCYTES # (AUTO) 0.7 K/uL (0.1-1.0); MONOCYTES % (AUTO) 7.9 % (3.0-13.0); NEUTROPHILS # (AUTO) 7.2 K/uL (1.8-7.7); NEUTROPHILS % (AUTO) 86.2 % (40.0-77.0); PLATELET COUNT (AUTO) 242 K/uL (130-400); RED BLOOD CELL COUNT(AUTO) 3.32 MIL/uL (4.50-6.20); RED CELL DISTRIBUTION WIDTH 14.8 % (11.0-15.5); WHITE BLOOD COUNT (AUTO) 8.3 K/uL (4.8-10.8)
[2024-08-10 05:13] LABS: CREATININE 0.8 mg/dL (0.5-1.3); POTASSIUM 3.7 mmol/L (3.5-5.1)
[2024-08-10 07:59] VITALS: BP 118/72; PULSE 69; RESP 18; TEMP 98.4
[2024-08-10 08:00] VITALS: O2SAT 95
[2024-08-10 11:40] VITALS: BP 118/58; PULSE 72; RESP 16; TEMP 98
== END 2024-08-10 13:50 | disposition home or self-care (01) | DRG 330 ==
LOC: DAHIP 08-08 10:13 → 3CH 08-08 18:40
PROVIDERS: ADMIT Surgery; ATTEND Surgery
PROC: 0DBB0ZZ Excision of Ileum, Open Approach (ICD-10-PCS; principal; 2024-08-08 16:18)
DX: Z43.2 Encounter for attention to ileostomy (principal); C20 Malignant neoplasm of rectum; K63.5 Polyp of colon; J44.9 Chronic obstructive pulmonary disease, unspecified; E66.9 Obesity, unspecified; Z68.32 Body mass index [BMI] 32.0-32.9, adult
CPT/HCPCS: 36415; 80048; 80053; 85025; 85610; 85730; 86850; 86900; 86901; 93005; A4344; A4606; G0378; J0330; J1100; J1335; J1650; J2001; J2250; J2270; J2405; J2704; J2710; J3010; J3480; J3490; J7120; P9045; A4215; A4216; A4221; A4222; A4223; A4600; A4663; A4930; A6260; J0665

== ENCOUNTER 2025-11-05 20:16 | Inpatient (IN) | payer MEDICARE, MEDICAID ==
[~2025-11-05] VITALS: Ht 172.7 cm; Wt 106.8 kg
[2025-11-05 21:16] LABS: IMMATURE GRANULOCYTE ABSOLUTE 0.04 K/uL (0-1); NUCLEATED RED BLOOD CELLS 0.0 % (0.0-0.19); PLATELET COUNT (AUTO) 250 K/uL (130-400); RED BLOOD CELL COUNT(AUTO) 4.80 MIL/uL (4.50-6.20); RED CELL DISTRIBUTION WIDTH 14.2 % (11.0-15.5); WHITE BLOOD COUNT (AUTO) 11.3 K/uL (4.8-10.8)
[2025-11-05 21:24] LABS: CREATININE 0.8 mg/dL (0.5-1.3); GLOMERULAR FILTR. RATE CALC 91.0 mL/min (>90); GLUCOSE,RANDOM 109.0 mg/dL (70-105); SODIUM SERUM 128.0 mmol/L (136-145); UREA NITROGEN, BLOOD 9.0 mg/dL (7-18)
[2025-11-05 22:05] LABS: ADD UA MICROSCOPIC YES; APPEARANCE,URINE CLEAR (CLEAR); GLUCOSE, URINE (UA) NEGATIVE (NEGATIVE); LEUKOCYTE ESTERASE ,URINE NEGATIVE Leu/uL (NEGATIVE); NITRATE,URINE NEGATIVE (NEGATIVE); OCCULT BLOOD,URINE SMALL (NEGATIVE)
[2025-11-05 22:06] LABS: SQUAMOUS EPITHELIAL CELL,UR RARE /HPF (0-2)
--- NOTE | 2025-11-05 22:15 | ERN ---
ED Note History of Present Illness Stated Complaint: RUQ PAIN Chief Complaint: Abdominal Pain Time Seen by MD: 20:33 Dictation: This is a 75-year-old male who presented to the emergency room with complaints of right upper quadrant pain right lower quadrant pain with nausea vomitings. He went to [facility] and was told it could be appendicitis and referred him to the ER. Patient came in with his sister who is his provider patient stated that he had abdominal surgery [address] Nixon No fever chills or rigors. No diarrhea Temperature 99.1 pulse 86 respirations 20 blood pressure 144/74 with a pulse oximetry of 97% on room air History of hypertension, colon cancer status post resection Allergies: Coded Allergies: No Known Drug Allergies (Unverified Allergy, Unknown, 10/07/21) Home Meds Reported Medications Lisinopril (Lisinopril) 20 Mg Tablet, 20 MG PO AM, TAB 07/18/24 Apixaban (Eliquis) 5 Mg Tablet, 5 MG PO BID, TAB 07/18/24 Furosemide (Furosemide) 40 Mg Tablet, 40 MG PO DAILY, TAB 07/18/24 Carbamazepine (Carbamazepine ER) 100 Mg Tab.er.12h, 100 MG PO BID, TAB 07/18/24 Metoprolol Succinate (Metoprolol Succinate) 50 Mg Tab.er.24h, 50 MG PO DAILY, TAB 07/18/24 Past Medical History Past Medical History: Cancer, Hypertension Additional Past Medical Hx: COLON CA, Surgical History: Other Surgical History Other: COLON RESECTION Family History: Negative Social History: Drugs (Cocaine abuse), Lives with family, Other RN Note Reviewed/Agreed w/PFSH: Yes Review of System Dictation Constitutional: Negative for fever,chills, and weight loss Eyes: Negative for injury, pain,redness, and discharge ENT: Negative for injury,pain or swelling Cardiovascular: Negative for chest pain, palpitations, and edema Respiratory: Negative for shortness of breath, cough, and wheezing, Abdomen/GI: Positive for abdominal pain, nausea, vomiting, denied diarrhea, and constipation Back: Negative for injury and pain : Negative for injury, bleeding and discharge MS/Extremity: Negative for injury and deformity Skin: Negative for rash, and discoloration Neuro: Negative for headache, weakness, numbness, tingling, and seizure Psych: Negative for suicide ideation, homicidal ideation, and hallucinations Initial Vital Sign VS Vital Signs Date Time Temp Pulse Resp B/P (MAP) Pulse Ox O2 Delivery O2 Flow Rate FiO2 11/05/25 20:19 99.1 86 20 144/74 97 Room Air 0 Physical Exam Dictation General: awake, alert, NAD obese male appears much older Head/Face: Normocephalic, atraumatic Eyes: PERRL, EOMI, vision at baseline ENT: oral cavity clear, TMs clear, no signs of infection Neck: Trachea midline, supple, no nuchal rigidity Cardiovascular: RRR, normal S1/S2, No MRGs, no JVD Respiratory: CTAB, no respiratory distress, No rales or wheezes Abdomen: Soft, mild tenderness to palpation, markedly distended, normal bowel sounds, no guarding or rebound. Right-sided large oval to round area of erythema and scarring from his previous ileostomy. Skin: Warm, dry, normal turgor, no rash MS/Extremity: Pulses equal, no cyanosis, neurovascular intact, FROM Neuro: COAx4, GCS 15, strength 5/5, CN 2-12 intact, normal cerebellar exam, normal gait, Psych: Normal behavior, mood, and affect normal Extremities-trace edema without any palpable cords, Homans sign is negative Results (Laboratory/Radiology) Laboratory/Radiology Laboratory Tests Test 11/05/25 21:05 11/05/25 21:54 White Blood Count 11.3 K/uL (4.8-10.8) H Red Blood Count 4.80 MIL/uL (4.50-6.20) Hemoglobin 14.3 g/dL (14.0-18.0) Hematocrit 43.2 % (42-54) Mean Corpuscular Volume 90.0 fL (79-99) Mean Corpuscular Hemoglobin 29.8 pg (27.0-33.0) Mean Corpuscular Hemoglobin Concent 33.1 g/dL (32.0-36.0) Red Cell Distribution Width 14.2 % (11.0-15.5) Platelet Count 250 K/uL (130-400) Mean Platelet Volume 8.8 fL (7.5-10.5) Immature Granulocyte % (Auto) 0.4 % (0-1) Neutrophils (%) (Auto) 83.5 % (40.0-77.0) H Lymphocytes (%) (Auto) 7.0 % (21.0-51.0) L Monocytes (%) (Auto) 7.8 % (3.0-13.0) Eosinophils (%) (Auto) 1.1 % (0.0-8.0) Basophils (%) (Auto) 0.2 % (0.0-5.0) Neutrophils # (Auto) 9.5 K/uL (1.8-7.7) H Lymphocytes # (Auto) 0.8 K/uL (1.0-4.8) L Monocytes # (Auto) 0.9 K/uL (0.1-1.0) Eosinophils # (Auto) 0.13 K/uL (0.00-0.70) Basophils # (Auto) 0.02 K/uL (0.00-0.20) Absolute Immature Granulocyte (auto 0.04 K/uL (0-1) Nucleated Red Blood Cells 0.0 % (0.0-0.19) White Cell Morphology Comment See comments Sodium Level 128 mmol/L (136-145) L Potassium Level 4.4 mmol/L (3.5-5.1) Chloride Level 95 mmol/L (101-111) L Carbon Dioxide Level 27 mmol/L (21-32) Blood Urea Nitrogen 9 mg/dL (7-18) Creatinine 0.8 mg/dL (0.5-1.3) Glomerular Filtration Rate Calc 91 mL/min (>90) Random Glucose 109 mg/dL (70-105) H Total Calcium 8.9 mg/dL (8.5-10.1) Lipase 30 U/L (16-77) Urine Color LIGHT-YELLOW (YELLOW) Urine Appearance CLEAR (CLEAR) Urine pH 6.5 (5.0-8.0) Urine Specific [place] 1.018 (1.001-1.031) Urine Protein NEGATIVE mg/dL (NEGATIVE) Urine Glucose (UA) NEGATIVE mg/dL (NEGATIVE) Urine Ketones NEGATIVE mg/dL (NEGATIVE) Urine Occult Blood SMALL (NEGATIVE) H Urine Nitrate NEGATIVE (NEGATIVE) Urine Bilirubin NEGATIVE mg/dL (NEGATIVE) Urine Urobilinogen 0.2 mg/dL (0.2-1.0) Urine Leukocyte Esterase NEGATIVE [place]/uL Urine RBC 11-25 /HPF (0-1) H Urine WBC 0-1 /HPF (0-1) Urine Squamous Epithelial Cells RARE /HPF (0-2) Urine Bacteria None /HPF (None Seen) Urine Opiates Screen NEGATIVE (NEGATIVE) Urine Barbiturates Screen NEGATIVE (NEGATIVE) Urine Phencyclidine Screen NEGATIVE (NEGATIVE) Urine Amphetamines Screen NEGATIVE (NEGATIVE) Urine Benzodiazepines Screen NEGATIVE (NEGATIVE) Urine Cocaine Screen POSITIVE (NEGATIVE) H Urine Marijuana (THC) Screen NEGATIVE (NEGATIVE) Labs Reviewed?: Yes CT Scan Comment: REASON: History of colon cancer resection, abdominal pain with nausea vomitings ORDERING PHYSICIAN: PINKY SAINZ MD PROCEDURE: ABD PEL W - CT ABDOMEN/PELVIS W/CONTRAST EXAM: CT Abdomen and Pelvis with IV contrast CLINICAL HISTORY: History of colon cancer resection. Abdominal pain. Nausea and vomiting. TECHNIQUE: Postcontrast thin collimated axial CT images of the abdomen and pelvis were obtained with sagittal and coronal reformatted images also submitted. CT scan is done according to ALARA (As Low As Reasonably Achievable). COMPARISON: CT abdomen and pelvis dated 07/02/2024. FINDINGS: Symmetrical dependent atelectasis in the bilateral lung bases. Mild cardiomegaly. No focal abnormality within the liver, gallbladder, or spleen. 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 Nonspecific punctate calcification in the right adrenal gland. Unremarkable left adrenal exam. 0.6 cm nonenhancing Bosniak class I cyst in the left renal midpole. Unremarkable right kidney. Mild prostatomegaly. Mild chronic cystitis. Small hiatus hernia. Bowel anastomotic sutures in the distal ileum and rectosigmoid region. There is ill-defined soft tissue thickening with surrounding fat stranding around the distal ileal bowel anastomotic suture site with mildly dilated small bowel loops around the anastomotic site and proximal to the anastomotic site. Mildly reactive mesenteric lymph nodes with omental and mesenteric fat stranding around the ileal anastomotic site. Umbilical hernia which contains a portion of the omental fat, the defect measures about 4 x 2 cm. There is mild scarring in the presacral fat pad. A component of mild constipation is present in the colon. Unremarkable appendix. Calcific atherosclerotic disease in the abdominal aorta and its branches. No large ascites or pneumoperitoneum is evident. No acute bony abnormality. Degenerative osseous changes. 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 IMPRESSIONS: Interval development of an ill-defined infectious or inflammatory process around the distal ileal anastomotic site and surrounding peritoneal folds with features of partial bowel obstruction and ileus. No pneumatosis or bowel perforation is evident at this time. Umbilical hernia containing a portion of the omentum. A component of mild constipation is present in the colon. Bowel anastomotic sutures around the rectosigmoid region. Nonspecific scarring in the presacral fat pad. Mild prostatomegaly. Mild chronic cystitis. The other chronic findings as described above. /[place] DICTATED BY: SHANELLE GAINES Jr., MD DATE: 11/06/25126 ELECTRONICALLY SIGNED BY: SHANELLE GAINES Jr., MD DATE: 11/06/25126 Close ED Course ED Course Orders Procedure Category Date Status Time Cbc With Differential LAB 11/05/25 Complete 20:49 Urinalysis Profile LAB 11/05/25 Complete 20:49 Morphine 4mg Syg PHA 11/05/25 Complete (Morphine 4mg Syg) 21:00 Ondansetron 4mg PHA 11/05/25 Complete Tablet (Zofran 4mg 21:00 Lipase LAB 11/05/25 Complete 20:49 Basic Metabolic Panel LAB 11/05/25 Complete 20:49 Ct Abdomen/Pelvis CT 11/05/25 Resulted W/Contrast 22:00 Ondansetron 4mg Inj PHA 11/05/25 Complete (Zofran 4mg Inj) 22:30 Morphine 2mg Syg PHA 11/05/25 Complete (Morphine 2mg Syg) 22:47 Blood Cult RESHMA 11/06/25 In Process 00:34 Zosyn 3.375gm+Ns 50ml PHA 11/06/25 Complete (Zosyn 3.375gm+Ns 01:00 Drug Screen Urine LAB 11/06/25 Complete 00:45 0.9%Nacl 1000ml (Ns PHA 11/06/25 Complete 1000ml) 01:30 Edm Admit Bridge Order ADM 11/06/25 Transmitted 01:01 Vital Signs(Adult CPOE 11/06/25 Transmitted Hospitalist) 01:35 Nurse To Enter Home CPOE 11/06/25 Transmitted Medication 01:35 Admit Orders ADM 11/06/25 Transmitted 01:35 Dextrose 5 %-0.45 % PHA 11/06/25 Logged Nacl (D5 1/2ns) 02:00 Zosyn 3.375gm+Ns 50ml PHA 11/06/25 Logged (Zosyn 3.375gm+Ns 09:00 Acetaminophen 500mg PHA 11/06/25 Logged Tab (Tylenol 500mg T 02:00 Initiate Hypokalemia CPOE 11/06/25 Transmitted Po Half 01:35 Potassium Chloride PHA 11/06/25 Logged 10meq/100ml ([place] 02:00 Potassium Chl 10% PHA 11/06/25 Logged Elixir 20meq (Kcl 10% 02:00 Potassium Chloride PHA 11/06/25 Logged 20meq Er (K-Dur/Klor- 02:00 Notify Physician If CPOE 11/06/25 Transmitted There Is 01:35 Notify Md On The Next CPOE 11/06/25 Transmitted 01:35 Notify Md On The CPOE 11/06/25 Transmitted Next(Cont.) 01:35 Initiate Hypoglycemia JOYCE 11/06/25 In Process Protocol 01:35 Dextrose 50%-Water PHA 11/06/25 Logged (D50w) 02:00 Glucagon 1mg Kit PHA 11/06/25 Logged (Glucagon 1mg Kit) 02:00 Initiate JOYCE 11/06/25 In Process Hyperglycemia Protoco 01:35 Morphine 2mg Syg PHA 11/06/25 Logged (Morphine 2mg Syg) 02:00 Ondansetron 4mg Inj PHA 11/06/25 Logged (Zofran 4mg Inj) 02:00 Cbc With Differential LAB 11/06/25 Logged 06:00 Comprehensive LAB 11/06/25 Logged Metabolic Panel 06:00 Current Medications Medications (Trade) Dose Ordered Sig/Ac Route PRN Reason Start Time Stop Time Status Last Admin Dose Admin Acetaminophen (TYLenol 500MG TAB) 1,000 mg Q8H5 PRN PO TEMPERATURE GREATER THAN 100.4 11/06/25 02:00 12/06/25 01:59 UNV Dextrose (D50w) 50 ml AD PRN IV HYPOGLYCEMIA PROTOCOL 11/06/25 02:00 12/06/25 01:59 UNV Dextrose/Sodium Chloride 1,000 ml @ 75 mls/hr [id number] IV 11/06/25 02:00 12/06/25 01:59 UNV Glucagon (Glucagon 1mg Kit) 1 mg AD PRN IM HYPOGLYCEMIA PROTOCOL 11/06/25 02:00 12/06/25 01:59 UNV Morphine Sulfate (morPHINE 2MG SYG) 2 mg Q6H PRN IVP SEVERE PAIN (7-10) 11/06/25 02:00 11/13/25 01:59 UNV Morphine Sulfate (morPHINE 2MG SYG) 2 mg STK-MED ONCE .ROUTE 11/05/25 22:47 11/05/25 22:47 DC Morphine Sulfate (morPHINE 4MG SYG) 4 mg ONCE ONCE IVP 11/05/25 21:00 11/05/25 21:01 DC 11/05/25 22:55 Ondansetron HCl (zoFRAN 4MG TABLET) 4 mg ONCE ONCE PO 11/05/25 21:00 11/05/25 22:24 DC Ondansetron HCl (zoFRAN 4MG INJ) 4 mg ONCE ONCE IVP 11/05/25 22:30 11/05/25 22:44 DC 11/05/25 22:55 Ondansetron HCl (zoFRAN 4MG INJ) 4 mg Q6H PRN IVP NAUSEA/VOMITING 11/06/25 02:00 12/06/25 01:59 UNV Piperacillin Sod/ Tazobactam Sod (Zosyn 3.375gm+NS 50ml) 3.375 gm ONCE ONCE IV 11/06/25 01:00 11/06/25 01:01 DC Piperacillin Sod/ Tazobactam Sod (Zosyn 3.375gm+NS 50ml) 3.375 gm Q8H IV 11/06/25 09:00 11/16/25 08:59 UNV Potassium Chloride 100 ml @ 100 mls/hr AD PRN IV POTASSIUM PROTOCOL 11/06/25 02:00 12/06/25 01:59 UNV Potassium Chloride (K-Dur/Klor-Con 20meq) 10 meq AD PRN PO POTASSIUM PROTOCOL 11/06/25 02:00 12/06/25 01:59 UNV Potassium Chloride (KCl 10% Elixir 20meq/15ml) 10 meq AD PRN PO POTASSIUM PROTOCOL 11/06/25 02:00 12/06/25 01:59 UNV Sodium Chloride 1,000 ml @ 0 mls/hr ONCE ONCE IV 11/06/25 01:30 11/06/25 01:31 DC Vital Signs Date Time Temp Pulse Resp B/P (MAP) Pulse Ox O2 Delivery O2 Flow Rate FiO2 11/05/25 20:19 99.1 86 20 144/74 97 Room Air 0 Medical Decision Making MDM Differential diagnosis: SBO, peritonitis, intra-abdominal infection and abscess, cocaine induced vasoconstriction, Renal colic, biliary colic Gastritis, esophagitis, gastroesophageal reflux disease, acute cholecystitis, peptic ulcer disease, gastroenteritis, colitis, constipation, pancreatitis, diverticulitis This is a 75-year-old male who presented to the emergency room with complaints of right upper quadrant pain right lower quadrant pain with nausea vomitings. He went to [facility] and was told it could be appendicitis and referred him to the ER. Patient came in with his sister who is his provider patient stated that he had abdominal surgery [address] Nixon No fever chills or rigors. No diarrhea Temperature 99.1 pulse 86 respirations 20 blood pressure 144/74 with a pulse oximetry of 97% on room air History of hypertension, colon cancer status post resection Labs reviewed sodium 128 chloride 95 BUN and creatinine are 9 and 0.8. CBC showed a white count of 11.3 hemoglobin 14.3 platelets 250. Lipase is 30. 12:[address] scan of the abdomen and pelvis was done which showed partial small bowel obstruction and inflammatory changes in the mesentery. Patient lives by himself and I recommended admission to the hospital, tan cultures and empiric antibiotic therapy and to monitor his symptoms for improvement. 1:00 a.m. patient accepted by Dr. Rojo, primary care physician for admission and further management. Rationale: Tests considered and ordered secondary to shared decision making include: labs, ECG and radiology Previous outside records reviewed: Old ER visits. Risk of complication and/or morbidity or mortality of patient management: None Medications-Per medication reconciliation Need for hospitalization: Patient does meet criteria for hospitalization. Need for emergency major/minor surgery: No There are no social concerns with this patient. Prescription drug management Prescriptions will include symptomatic care Patient's prior external medical records from other ER visits were reviewed by me as indicated. Prior testing and results from previous visits were reviewed. Prior tests were taken into account with medical decision making and resource utilization, independent historian/historians were used to obtain complete medical history. I independently interpreted the test that were performed, results were reviewed by me and considered findings on radiology if ordered. Medical management and examination interpretation discussions were had by me with other qualified healthcare professionals as indicated for the patient's care. Problem List Problem List: (1) Partial small bowel obstruction (2) History of colon cancer (3) Intra-abdominal infection (4) Cocaine abuse (5) Hypertension DX & DISP Disposition: Inpatient Decision to Admit Time: 01:03 Departure Impression: Primary Impression: Partial small bowel obstruction Additional Impressions: Intra-abdominal infection, History of colon cancer, Cocaine abuse, Hypertension Condition: Stable Additional Instructions: Patient was informed of all the diagnostic labs and procedures conducted in the emergency room today and demonstrated understanding of the results. I personally reviewed and interpreted all the diagnostic exams performed in the ER today. The patient will be admitted to the hospital for further treatment and evaluation. Disposition-admit to facility Condition-stable/guarded Course-uncertain at this time Pain status-decreased Assessment-exam unchanged Admission Certification- I certify that the patients status is appropriate and is based on my best clinical judgment and the patient's condition as documented in the medical records Referrals: BE ROJO MD (PCP) PINKY SAINZ MD Nov 05, 2025 22:15
[2025-11-06] VITALS (41 sets, daily range): BP systolic 80–171; BP diastolic 43–83; PULSE 73–130; RESP 7–37; TEMP 98.1–103; O2SAT 92–97
--- NOTE | 2025-11-06 00:28 | HMCIMG ---
EXAM: CT Abdomen and Pelvis with IV contrast CLINICAL HISTORY: History of colon cancer resection. Abdominal pain. Nausea and vomiting. TECHNIQUE: Postcontrast thin collimated axial CT images of the abdomen and pelvis were obtained with sagittal and coronal reformatted images also submitted. CT scan is done according to ALARA (As Low As Reasonably Achievable). COMPARISON: CT abdomen and pelvis dated 07/02/2024. FINDINGS: Symmetrical dependent atelectasis in the bilateral lung bases. Mild cardiomegaly. No focal abnormality within the liver, gallbladder, or spleen. 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 Nonspecific punctate calcification in the right adrenal gland. Unremarkable left adrenal exam. 0.6 cm nonenhancing Bosniak class I cyst in the left renal midpole. Unremarkable right kidney. Mild prostatomegaly. Mild chronic cystitis. Small hiatus hernia. Bowel anastomotic sutures in the distal ileum and rectosigmoid region. There is ill-defined soft tissue thickening with surrounding fat stranding around the distal ileal bowel anastomotic suture site with mildly dilated small bowel loops around the anastomotic site and proximal to the anastomotic site. Mildly reactive mesenteric lymph nodes with omental and mesenteric fat stranding around the ileal anastomotic site. Umbilical hernia which contains a portion of the omental fat, the defect measures about 4 x 2 cm. There is mild scarring in the presacral fat pad. A component of mild constipation is present in the colon. Unremarkable appendix. Calcific atherosclerotic disease in the abdominal aorta and its branches. No large ascites or pneumoperitoneum is evident. No acute bony abnormality. Degenerative osseous changes. 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 IMPRESSIONS: Interval development of an ill-defined infectious or inflammatory process around the distal ileal anastomotic site and surrounding peritoneal folds with features of partial bowel obstruction and ileus. No pneumatosis or bowel perforation is evident at this time. Umbilical hernia containing a portion of the omentum. A component of mild constipation is present in the colon. Bowel anastomotic sutures around the rectosigmoid region. Nonspecific scarring in the presacral fat pad. Mild prostatomegaly. Mild chronic cystitis. The other chronic findings as described above. /[place]
[2025-11-06 01:28] LABS: AMPHET/METH SCREEN,URINE NEGATIVE (NEGATIVE); BARBITURATE SCREEN, URINE NEGATIVE (NEGATIVE); CANNABINOID SCREEN,URINE NEGATIVE (NEGATIVE); COCAINE SCREEN,URINE POSITIVE (NEGATIVE)
[2025-11-06] MEDS: 0.9%NACL 1000ML 1,000 ML IV ONE (01:56)
[2025-11-06] MEDS: ZOSYN 3.375GM +NS 50ML IV ONE (01:56)
[2025-11-06] MEDS ORDERED: PoTASSium chloRIDE 20MEQ ER 20 MEQ ERTAB PO PRN (02:00)
[2025-11-06] MEDS ORDERED: PoTASSium chl 10% ELIXIR 20MEQ 20 MEQ/15 ML UDCUP PO PRN (02:00)
[2025-11-06] MEDS ORDERED: DEXTROSE 50%-WATER 50 ML DISP.SYRIN IV PRN (02:00)
[2025-11-06] MEDS ORDERED: GLUCAGON 1MG KIT 1 MG ML IM PRN (02:00)
[2025-11-06] MEDS: DEXTROSE 5 %-0.45 % NACL 1,000 ML IV SCH (03:25)
[2025-11-06] MEDS ORDERED: LISI40TA15 PO (04:06)
[2025-11-06] MEDS ORDERED: CARV3.12 PO (04:06)
[2025-11-06 06:35] LABS: IMMATURE GRANULOCYTE ABSOLUTE 0.02 K/uL (0-1); NUCLEATED RED BLOOD CELLS 0.0 % (0.0-0.19); PLATELET COUNT (AUTO) 214 K/uL (130-400); RED BLOOD CELL COUNT(AUTO) 4.63 MIL/uL (4.50-6.20); RED CELL DISTRIBUTION WIDTH 14.4 % (11.0-15.5); WHITE BLOOD COUNT (AUTO) 10.2 K/uL (4.8-10.8)
[2025-11-06 06:49] LABS: ASPARTATE AMINOTRANSFERASE 14.0 U/L (10-37); CREATININE 0.9 mg/dL (0.5-1.3); GLOMERULAR FILTR. RATE CALC 88.0 mL/min (>90); GLUCOSE,RANDOM 110.0 mg/dL (70-105); SODIUM SERUM 131.0 mmol/L (136-145); TOTAL PROTEIN, SERUM 6.7 g/dL (6.0-8.3); UREA NITROGEN, BLOOD 8.0 mg/dL (7-18)
[2025-11-06] MEDS ORDERED: IOHEXOL-350 75 ML VIAL IV ONE (07:31)
[2025-11-06] MEDS: ZOSYN 3.375GM +NS 50ML IV SCH (09:46)
--- NOTE | 2025-11-06 09:56 | NUR ---
PROVIDER NOTIFICATION PATIENT NOTED TO HAVE BODY CHILLS. TEMPERATURE 101.4, AND BP 184/109. TYLENOL 1000MG GIVEN FOR HIGH TEMPERATURE PER PRN ORDER. CALLED DR. ROJO, NO ANSWER. LEFT MESSAGE, WAITING CALL BACK.
--- NOTE | 2025-11-06 10:30 | NUR ---
DCP CM MET WITH PT THIS MORNING, INITIAL ASSESSMENT DONE. PATIENT IS SEMI-INDEPENDENT PRIOR TO ADMISSION, LIVES AT HOME ALONE, SISTERS LIVES CLOSE BY. TODD HAS A WALKER, WHEELCHAIR. DENIES ANY OTHER EQUIPMENT/SERVICES. USES [facility] FOR MEDS. DENIES ANY OTHER EQUIPMENT/SERVICES. FEELS SAFE TO GO BACK HOME, SISTERS ABLE TO ASSIST WITH TRANSPORTATION AND NEEDS NECESSARY. DCP HOME VS SNF ONCE STABLE, PENDING MD FUNEZ. CM TO CONTINUE TO FOLLOW UP.
--- NOTE | 2025-11-06 10:31 | NUR ---
PROVIDER NOTIFICATION CALLED DR. ROJO REGARDING PATIENT'S HIGH TEMPERATURE OF 103, AND NEW ONSET OF HIGH HEART RATE RANGING BETWEEN 140s-150s. BLOOD PRESSURE 94/60. NEW ORDERS FOR 0.9% NORMAL SALINE BOLUS 1L, TRANSFER TO ICU, AND GENERAL SURGERY CONSULT, CARRIED OUT.
--- NOTE | 2025-11-06 10:48 | NUR ---
GENERAL SURGERY CONSULT AWARE CALLED CONDUCTOR AND ENGINEER SURGEON DR. DENG FOR NEW CONSULT FOR PATIENT. DR. DENG REQUESTED TO SPEAK TO HOSPITALIST FIRST.
[2025-11-06] MEDS: 0.9%NACL 1000ML 684 ML IV ONE (10:51)
--- NOTE | 2025-11-06 11:00 | NUR ---
REPORT GIVEN TO CARSON RODRIGUEZ FOR PATIENT TRANSFERRING TO INTENSIVE CARE UNIT.
--- NOTE | 2025-11-06 14:31 | CONS ---
[facility] CONSULTATION NOTE Date Patient Seen: Nov 06, 2025 Time of Visit: 14:29 Supervising Physician: Dr. Breen Reason for Consultation: Sepsis PROBLEM LIST: Suspected small bowel obstruction Hypertension History of colon cancer s/p resection HPI: Patient is a 75-year-old male who presented to the emergency department with complaints of right upper quadrant and lower right quadrant pain with associated nausea. Patient was worked up for appendicitis, per CT scan, patient has an ill-defined infectious or inflammatory process around the distal ileal anastomotic site and surrounding peritoneal folds suspicious for partial bowel obstruction and ileus. Pneumatosis versus bowel perforation evident. Patient was made NPO, hypertensive, febrile, transferred to ICU for sepsis and monitoring. Patient was bolused with a L of normal saline, rhino continues on D5 half NS at 100 per hour, patient is AAO x3, endorses right lower quadrant pain but states that it has improved. Patient this morning was not passing flatus, denies any bowel movements for the last four days. Later through the day patient is confirmed to be passing flatus, attempts to pass an NG-tube were unsuccessful, this will be held off at this time pending chest x-ray as well as flu and COVID given the patient's cough and congestion. General surgery has been consulted, currently pending evaluation. Heart rate showed sinus tachycardia at 1:26 a.m. on arrival to the ICU, currently at 88 beats per minute, patient's blood pressure 100/52. He is currently on 2 L nasal cannula. Plan Pending chest x-ray Pending COVID and flu serologies Pending general surgery recommendations Unable to insert NG tube Remain NPO Monitor for flatus and bowel movement Continue Zosyn Tylenol for fevers Morphine IV for pain Continue IV fluids PAST MEDICAL HX: see above PAST SURGICAL HX: noncontributory SOCIAL HISTORY: No tobacco, ETOH, or illicit drug use Coded Allergies: No Known Drug Allergies (Unverified Allergy, Unknown, 10/07/21) REVIEW OF SYSTEMS: 12 point ROS reviewed with patient. Pertinent positives mentioned above. Otherwise negative. PHYSICAL EXAM: GENERAL: alert, weak, awake oriented x 3 HEENT: EOMI, Sclera non icteric, moist mucosa NECK: Supple, no JVD, trachea midline LUNGS: Clear breath sounds bilaterally. No wheezes HEART: Regular rate and rhythm. Normal S1 and S2, without murmurs ABD: Abdomen soft, nontender. Bowel sounds present EXT: No clubbing cyanosis or edema NEURO: Alert and oriented to person, follows commands Vital Signs (last 8hr) Date Time Temp Pulse Resp B/P (MAP) Pulse Ox O2 Delivery O2 Flow Rate FiO2 11/06/25 13:30 88 34 100/52 91 Nasal Cannula 2.0 11/06/25 13:15 92 20 96/56 91 Nasal Cannula 2.0 11/06/25 13:00 92 20 96/56 91 Nasal Cannula 2.0 11/06/25 12:30 88 7 96/55 95 Nasal Cannula 2.0 11/06/25 12:15 126 16 93/51 92 Nasal Cannula 2.0 11/06/25 12:00 126 16 93/51 92 Nasal Cannula 2.0 11/06/25 11:00 102.0 130 13 108/62 93 Nasal Cannula 2.0 11/06/25 09:46 101.5 11/06/25 08:10 98.1 83 16 140/71 96 Room Air LABS: Hematology Labs: Test 11/06/25 06:28 11/05/25 21:05 Range/Units White Blood Count 10.2 4.8-10.8 K/uL Red Blood Count 4.63 4.50-6.20 MIL/uL Hemoglobin 13.7 L 14.0-18.0 g/dL Hematocrit 42.2 42-54 % Mean Corpuscular Volume 91.1 79-99 fL Mean Corpuscular Hemoglobin 29.6 27.0-33.0 pg Mean Corpuscular Hemoglobin Concent 32.5 32.0-36.0 g/dL Red Cell Distribution Width 14.4 11.0-15.5 % Platelet Count 214 130-400 K/uL Mean Platelet Volume 8.9 7.5-10.5 fL Immature Granulocyte % (Auto) 0.2 0-1 % Neutrophils (%) (Auto) 82.9 H 40.0-77.0 % Lymphocytes (%) (Auto) 6.8 L 21.0-51.0 % Monocytes (%) (Auto) 8.9 3.0-13.0 % Eosinophils (%) (Auto) 1.0 0.0-8.0 % Basophils (%) (Auto) 0.2 0.0-5.0 % Neutrophils # (Auto) 8.5 H 1.8-7.7 K/uL Lymphocytes # (Auto) 0.7 L 1.0-4.8 K/uL Monocytes # (Auto) 0.9 0.1-1.0 K/uL Eosinophils # (Auto) 0.10 0.00-0.70 K/uL Basophils # (Auto) 0.02 0.00-0.20 K/uL Absolute Immature Granulocyte (auto 0.02 0-1 K/uL Nucleated Red Blood Cells 0.0 0.0-0.19 % White Cell Morphology Comment See comments Chemistry Labs: Test 11/06/25 10:31 11/06/25 06:28 11/05/25 21:05 Range/Units Whole Blood Glucose 126 H 70-110 MG/DL Sodium Level 131 L 136-145 mmol/L Potassium Level 4.9 3.5-5.1 mmol/L Chloride Level 97 L 101-111 mmol/L Carbon Dioxide Level 31 21-32 mmol/L Blood Urea Nitrogen 8 7-18 mg/dL Creatinine 0.9 0.5-1.3 mg/dL Glomerular Filtration Rate Calc 88 >90 mL/min Random Glucose 110 H 70-105 mg/dL Total Calcium 8.3 L 8.5-10.1 mg/dL Total Bilirubin 1.0 0.2-1.0 mg/dL Aspartate Amino Transf (AST/SGOT) 14 10-37 U/L Alanine Aminotransferase (ALT/SGPT) 18 12-78 U/L Alkaline Phosphatase 113 50-136 U/L Total Protein 6.7 6.0-8.3 g/dL Albumin 3.0 L 3.5-5.0 g/dL Lipase 30 16-77 U/L DIAGNOSTICS / RADIOLOGY RESULTS: [ ] PLAN NEURO: Minimize central acting medications as possible. Fall Precautions. Well lighted room through the day and minimize interruptions through the night to prevent acute delirium. PULMONARY: Supplemental 02 as needed Titrate Fio2 to keep Spo2 > or = 90% DuoNebs and CPT as needed IS hourly while awake for pulmonary hygiene Out of bed to chair as tolerated VAP Bundle Vent/BIPAP Settings: [ ] Driving pressure: [ ] P Plat: [ ] Static C: [ ] Static R: [ ] P/F Ratio: [ ] CARDIOVASCULAR: Follow hemodynamics. Titrate vasopressor to keep MAP >65 or systolic blood pressure >95mmHg DIPS: [ ] LINES: [ ] GI & NUTRITION: Continue nutritional support Aspirations precautions Prokinetic agents and laxatives as needed KIDNEYS & ELECTROLYTES: Strict monitoring of intake and output Daily weights Avoid nephrotoxic agents Monitor electrolytes and replace as needed Goal urine output of 30mL/hr or 0.5mL/kg/hr Urine output: [ ] Fluid Balance: [ ] ENDOCRINE: Maintain blood glucose between 100-180 at all times. Insulin sliding scale for blood glucose management INFECTIOUS DISEASE: Trend temperature. Deluca-culture if febrile. Micro: [ ] Antibiotics: [ ] HEMATOLOGY & COAGULATION: Monitor H&H. Keep Hgb > 7 Transfuse 1 unit of PRBC for Hgb < 7 Transfuse 1 pack of platelets of platelets < 20, 000 Watch for any signs and symptoms of bleeding SKIN: Pressure ulcer prevention per facility protocol Rehab: PT/OT Prophylaxis: GI: [ ] DVT: [ ] Code Status: Full Resuscitation Disposition: [ ] Other: Total patient care time exceeds 35 minutes excluding all procedures. Case was discussed and seen with my supervising physician. The above plan was formulated and agreed upon. ROSENDO THOMAS PAC Nov 06, 2025 14:31
[2025-11-06 15:25] LABS: INFLUENZA TYPE A Negative For Type A (NEGATIVE); INFLUENZA TYPE B Negative For Type B (NEGATIVE)
--- NOTE | 2025-11-06 15:34 | NUR ---
REPORT GIVEN TO ELYSIA ALFORD FOR PATIENT TRANSFERRING FROM ROOM 416 TO ROOM 407. Addendum: 11/06/25 at 2043 by ADÁN MATIAS LVN LVN INCORRECT INPUT. PLEASE DISREGARD THIS NOTE.
[2025-11-06 15:43] LABS: RAPID GROUP A STREP positive (NEGATIVE)
--- NOTE | 2025-11-06 21:20 | HMCIMG ---
EXAM: XR Chest, 1 AP View. CLINICAL HISTORY: Shortness of breath (SOB). COMPARISON: Chest radiograph dated 07/01/2024. FINDINGS: LUNGS: Bilateral, diffuse interstitial and patchy airspace opacities, most pronounced in the perihilar and lower lung lobes, a pattern most suggestive of pulmonary edema. PLEURAL SPACES: Small bilateral pleural effusions. No pneumothorax identified. HEART: Enlarged cardiac silhouette with bilateral pulmonary vascular congestion seen. BONES: No acute osseous abnormality. LINES AND TUBES: External monitoring leads project over the chest. IMPRESSION: 1.Cardiomegaly with bilateral interstitial and basilar-predominant airspace opacities, a pattern most suggestive of pulmonary edema in the appropriate clinical setting. 2. Small bilateral pleural effusions. 3. Clinical correlation recommended, including assessment of volume status and cardiac function 4. Comapred with prior study dated 07/01/2024, interval development of pleural effusions and airspace disease. . /[place]
[2025-11-07] VITALS (44 sets, daily range): BP systolic 93–150; BP diastolic 40–95; PULSE 77–91; RESP 12–36; TEMP 97.9–98.9; O2SAT 96–98
[2025-11-07 05:03] LABS: NUCLEATED RED BLOOD CELLS 0.0 % (0.0-0.19); PLATELET COUNT (AUTO) 181.0 K/uL (130-400); RED BLOOD CELL COUNT(AUTO) 4.16 MIL/uL (4.50-6.20); RED CELL DISTRIBUTION WIDTH 14.6 % (11.0-15.5); WHITE BLOOD COUNT (AUTO) 11.2 K/uL (4.8-10.8)
--- NOTE | 2025-11-07 07:27 | HP ---
HISTORY OF PRESENT ILLNESS: The patient came to the Emergency Room complaining of right upper quadrant and right lower quadrant pain associated with nausea, vomiting. He was apparently seen at the [facility] and was diagnosed with appendicitis and was referred to the Emergency Room. The patient had had a colectomy with an ileostomy and ileostomy reversal [address] Self. PAST MEDICAL HISTORY: Hypertension, dyslipidemia, chronic anticoagulation, colon cancer status post colon resection. SOCIAL HISTORY: The patient has history of cocaine abuse. REVIEW OF SYSTEMS: No fever or chills. No seizure or loss of consciousness. No diplopia, dysarthria, or dysphonia. No chest pain or palpitations. No cough, wheezes, or rhonchi. Complaining of right upper quadrant and right lower quadrant abdominal pain with nausea and vomiting. No dysuria, urgency, or frequency. No rashes, petechiae, or ecchymosis. No hallucinations or delusions. No suicidal ideation. PHYSICAL EXAMINATION: GENERAL: He is currently awake, alert, oriented to person, time, and place. Not in distress. VITAL SIGNS: See in the chart. HEENT: Normocephalic, atraumatic. LUNGS: Clear to auscultation. HEART: S1 and S2 are distant. ABDOMEN: Mildly distended, tender to superficial and deep palpation with positive rebound. Bowel sounds are decreased. EXTREMITIES: No clubbing, cyanosis, or edema. NEUROLOGIC: Cranial nerves 2-12 grossly preserved. LABORATORY DATA: WBC count 11.3, hemoglobin 14.3, platelets 250. Sodium 128, potassium 4.4, BUN 9, creatinine 0.8. Lipase 30. CT scan of the abdomen was reported with interval development of an ill-defined infectious or inflammatory process around the distal ileal anastomotic site and surrounding peritoneal folds with features of partial bowel obstruction and ileus. No pneumatosis or bowel perforation. ASSESSMENT AND PLAN: Right lower quadrant pain with peritoneal signs. Surgical consultation was made from the Emergency Room. Apparently, Dr. Self was consulted. We asked the nurse to verify this as well as consult surgeon on-call if Dr. Self not available. Continue with IV antibiotic, Zosyn, and continue IV fluids. Cultures have been sent. Follow up with results. DOS: 11/06/2025 TID: [id number] RECEIPT: [id number] MTDD
[2025-11-07 07:39] LABS: ASPARTATE AMINOTRANSFERASE 30.0 U/L (10-37); CREATININE 1.1 mg/dL (0.5-1.3); GLOMERULAR FILTR. RATE CALC 69.0 mL/min (>90); GLUCOSE,RANDOM 92.0 mg/dL (70-105); SODIUM SERUM 128.0 mmol/L (136-145); TOTAL PROTEIN, SERUM 6.1 g/dL (6.0-8.3); UREA NITROGEN, BLOOD 16.0 mg/dL (7-18)
--- NOTE | 2025-11-07 10:51 | PN ---
[facility] PROGRESS NOTE Date Patient Seen: Nov 07, 2025 Time of Visit: 10:51 Supervising Physician: Dr. Breen PROBLEM LIST: Suspected small bowel obstruction Strep Pharyngitis Hypertension History of colon cancer s/p resection INTERVAL HISTORY: Patient evaluated at bedside today, denies any acute discomfort,, currently on 2 L nasal cannula with a white count of 11.2 and hemoglobin of 12.3. He continues on Zosyn at this time for suspected small bowel obstruction versus perforation a s well as strep pharyngitis. We have been unable to achieve an NG-tube on the patient, however today it has been reported that the patient has had a large bowel movement. KUB ordered for re-evaluation of the SBO, pending General surgery recommendations at this time. We will start the patient on a full liquid diet and progress as tolerated. Plan Patient confirmed one bowel movement, we will progress to full liquid diet at this time Continue Zosyn Follow morning labs Pending surgery consultation Patient is being downgraded to [facility] will sign off the case at this time. REVIEW OF SYSTEMS: 12 point ROS reviewed with patient. Pertinent positives mentioned above. Otherwise negative. PHYSICAL EXAM: GENERAL: alert, weak, awake oriented x 3 HEENT: EOMI, Sclera non icteric, moist mucosa NECK: Supple, no JVD, trachea midline LUNGS: Clear breath sounds bilaterally. No wheezes HEART: Regular rate and rhythm. Normal S1 and S2, without murmurs ABD: Abdomen soft, nontender. Bowel sounds present EXT: No clubbing cyanosis or edema NEURO: Alert and oriented to person, follows commands Vital Signs (last 8hr) Date Time Temp Pulse Resp B/P (MAP) Pulse Ox O2 Delivery O2 Flow Rate FiO2 11/07/25 09:30 85 23 110/65 93 Nasal Cannula 2.0 11/07/25 09:00 85 23 139/60 94 Nasal Cannula 2.0 11/07/25 08:00 98 Nasal Cannula* 2 28 11/07/25 08:00 99.0 87 28 141/61 94 Nasal Cannula 2.0 11/07/25 07:30 85 36 140/62 95 Nasal Cannula 2.0 11/07/25 07:00 83 21 150/40 95 Nasal Cannula 2.0 11/07/25 06:37 85 25 130/73 94 Nasal Cannula 2.0 11/07/25 06:22 87 25 128/74 96 Nasal Cannula 2.0 11/07/25 06:07 86 30 120/82 94 Nasal Cannula 2.0 11/07/25 05:52 86 21 134/95 94 Nasal Cannula 2.0 11/07/25 05:37 87 19 118/70 92 Nasal Cannula 2.0 11/07/25 05:22 85 30 122/62 91 Nasal Cannula 2.0 11/07/25 05:07 87 30 117/57 91 Nasal Cannula 2.0 11/07/25 04:52 87 21 110/61 94 Nasal Cannula 2.0 11/07/25 04:37 88 34 118/61 95 Nasal Cannula 2.0 11/07/25 04:22 87 28 107/57 95 Nasal Cannula 2.0 11/07/25 04:07 90 26 111/64 94 Nasal Cannula 2.0 11/07/25 03:52 86 26 108/61 95 Nasal Cannula 2.0 11/07/25 03:46 97 Nasal Cannula* 2 28 11/07/25 03:37 98.1 91 30 117/62 94 Nasal Cannula 2.0 11/07/25 03:22 82 30 119/58 94 Nasal Cannula 2.0 11/07/25 03:07 84 18 111/59 94 Nasal Cannula 2.0 11/07/25 02:53 85 23 112/61 94 Nasal Cannula 2.0 LABS: Hematology Labs: Test 11/07/25 04:49 11/06/25 06:28 11/05/25 21:05 Range/Units White Blood Count 11.2 H 4.8-10.8 K/uL Red Blood Count 4.16 L 4.50-6.20 MIL/uL Hemoglobin 12.3 L 14.0-18.0 g/dL Hematocrit 37.9 L 42-54 % Mean Corpuscular Volume 91.1 79-99 fL Mean Corpuscular Hemoglobin 29.6 27.0-33.0 pg Mean Corpuscular Hemoglobin Concent 32.5 32.0-36.0 g/dL Red Cell Distribution Width 14.6 11.0-15.5 % Platelet Count 181 130-400 K/uL Mean Platelet Volume 9.2 7.5-10.5 fL Nucleated Red Blood Cells 0.0 0.0-0.19 % Immature Granulocyte % (Auto) 0.2 0-1 % Neutrophils (%) (Auto) 82.9 H 40.0-77.0 % Lymphocytes (%) (Auto) 6.8 L 21.0-51.0 % Monocytes (%) (Auto) 8.9 3.0-13.0 % Eosinophils (%) (Auto) 1.0 0.0-8.0 % Basophils (%) (Auto) 0.2 0.0-5.0 % Neutrophils # (Auto) 8.5 H 1.8-7.7 K/uL Lymphocytes # (Auto) 0.7 L 1.0-4.8 K/uL Monocytes # (Auto) 0.9 0.1-1.0 K/uL Eosinophils # (Auto) 0.10 0.00-0.70 K/uL Basophils # (Auto) 0.02 0.00-0.20 K/uL Absolute Immature Granulocyte (auto 0.02 0-1 K/uL White Cell Morphology Comment See comments Chemistry Labs: Test 11/07/25 04:49 11/06/25 10:31 11/05/25 21:05 Range/Units Sodium Level 128 L 136-145 mmol/L Potassium Level 4.2 3.5-5.1 mmol/L Chloride Level 97 L 101-111 mmol/L Carbon Dioxide Level 23 21-32 mmol/L Blood Urea Nitrogen 16 7-18 mg/dL Creatinine 1.1 0.5-1.3 mg/dL Glomerular Filtration Rate Calc 69 >90 mL/min Random Glucose 92 70-105 mg/dL Total Calcium 7.8 L 8.5-10.1 mg/dL Total Bilirubin 1.4 #H 0.2-1.0 mg/dL Aspartate Amino Transf (AST/SGOT) 30 10-37 U/L Alanine Aminotransferase (ALT/SGPT) 15 12-78 U/L Alkaline Phosphatase 98 50-136 U/L Total Protein 6.1 6.0-8.3 g/dL Albumin 2.5 L 3.5-5.0 g/dL Whole Blood Glucose 126 H 70-110 MG/DL Lipase 30 16-77 U/L DIAGNOSTICS / RADIOLOGY RESULTS: [ ] PLAN NEURO: Minimize central acting medications as possible. Fall Precautions. Well lighted room through the day and minimize interruptions through the night to prevent acute delirium. PULMONARY: Supplemental 02 as needed Titrate Fio2 to keep Spo2 > or = 90% DuoNebs and CPT as needed IS hourly while awake for pulmonary hygiene Out of bed to chair as tolerated VAP Bundle Vent/BIPAP Settings: [ ] Driving pressure: [ ] P Plat: [ ] Static C: [ ] Static R: [ ] P/F Ratio: [ ] CARDIOVASCULAR: Follow hemodynamics. Titrate vasopressor to keep MAP >65 or systolic blood pressure >95mmHg DIPS: [ ] LINES: [ ] GI & NUTRITION: Continue nutritional support Aspirations precautions Prokinetic agents and laxatives as needed KIDNEYS & ELECTROLYTES: Strict monitoring of intake and output Daily weights Avoid nephrotoxic agents Monitor electrolytes and replace as needed Goal urine output of 30mL/hr or 0.5mL/kg/hr Urine output: [ ] Fluid Balance: [ ] ENDOCRINE: Maintain blood glucose between 100-180 at all times. Insulin sliding scale for blood glucose management INFECTIOUS DISEASE: Trend temperature. Deluca-culture if febrile. Micro: [ ] Antibiotics: [ ] HEMATOLOGY & COAGULATION: Monitor H&H. Keep Hgb > 7 Transfuse 1 unit of PRBC for Hgb < 7 Transfuse 1 pack of platelets of platelets < 20, 000 Watch for any signs and symptoms of bleeding SKIN: Pressure ulcer prevention per facility protocol Rehab: PT/OT Prophylaxis: GI: [ ] DVT: [ ] Code Status: Full Resuscitation Disposition: [ ] Other: Total patient care time exceeds 35 minutes excluding all procedures. Case was discussed and seen with my supervising physician. The above plan was formulated and agreed upon. ROSENDO THOMAS PAC Nov 07, 2025 10:51
--- NOTE | 2025-11-07 15:14 | HMCIMG ---
EXAM: CR Abdomen, 2 View. CLINICAL HISTORY: Abdomen distention COMPARISON: CT - CT ABDOMEN/PELVIS W/CONTRAST - 11/05/25 22:33 EST FINDINGS: BOWEL: The bowel gas pattern is within normal limits. PERITONEUM/SOFT TISSUES: No free air evident. No pathologic appearing calcification. BONES: No aggressive appearing osseous lesion seen. IMPRESSION: Scattered air-filled loops of small bowel, nonspecific. Mild stool burden in the colon. /[place]
--- NOTE | 2025-11-07 15:29 | PN ---
SUBJECTIVE: The patient was transferred to Intensive Care Unit after he became hypotensive, febrile, and persistent abdominal pain. Surgery consultation has been made, still pending. OBJECTIVE: GENERAL: The patient is currently awake, alert, oriented in person, time, and place, in distress due to persistent abdominal pain. VITAL SIGNS: In the chart. HEENT: Normocephalic, atraumatic. LUNGS: Clear to auscultation bilaterally. HEART: S1, S2 are distant. ABDOMEN: Distended. Tender to deep palpation in the right lower quadrant with persistent rebound. Bowel sounds are decreased. EXTREMITIES: No clubbing or cyanosis. No edema. LABORATORY DATA: WBC count today 11.2, hemoglobin 12.3, platelets 181. Sodium 128, potassium 4.2, BUN 16, creatinine 1.1, total bilirubin 1.4, albumin 2.5. Chest x-ray shows cardiomegaly with bilateral interstitial and basilar predominant air space opacity, small bilateral pleural effusions. ASSESSMENT AND PLAN: * Abdominal pain in the right lower quadrant and ileitis as per CT scan. Surgical consultation still pending. * Bilateral pulmonary infiltrates, continue with Zosyn. * Continue with pain management. * Follow up with results of tests. DOS: 11/07/2025 TID: [id number] RECEIPT: [id number] MTDAlma
[2025-11-08] VITALS: BP 134/71; PULSE 74; RESP 16; TEMP 98.2
[2025-11-08 04:00] VITALS: BP 123/71; PULSE 77; RESP 16; TEMP 98.6
[2025-11-08 08:00] VITALS: BP 129/73; PULSE 72; RESP 20; TEMP 97.4
[2025-11-08] MEDS ORDERED: PoTASSium chloRIDE 10MEQ SR 10 MEQ/TAB TAB.SR.24H PO PRN (08:00)
[2025-11-08 10:01] LABS: IMMATURE GRANULOCYTE ABSOLUTE 0.02 K/uL (0-1); NUCLEATED RED BLOOD CELLS 0.0 % (0.0-0.19); PLATELET COUNT (AUTO) 177 K/uL (130-400); RED BLOOD CELL COUNT(AUTO) 4.05 MIL/uL (4.50-6.20); RED CELL DISTRIBUTION WIDTH 14.3 % (11.0-15.5); WHITE BLOOD COUNT (AUTO) 5.9 K/uL (4.8-10.8)
[2025-11-08 10:16] LABS: CREATININE 0.9 mg/dL (0.5-1.3); GLOMERULAR FILTR. RATE CALC 88.0 mL/min (>90); GLUCOSE,RANDOM 124.0 mg/dL (70-105); SODIUM SERUM 129.0 mmol/L (136-145); UREA NITROGEN, BLOOD 9.0 mg/dL (7-18)
[2025-11-08 10:21] LABS: ASPARTATE AMINOTRANSFERASE 21.0 U/L (10-37); TOTAL PROTEIN, SERUM 6.4 g/dL (6.0-8.3)
[2025-11-08 12:00] VITALS: BP 121/71; PULSE 78; RESP 20; TEMP 97.5
--- NOTE | 2025-11-08 15:10 | NUR ---
round DR. DENG PRESENT ON UNIT. STATES TO CONSULT . PTS SURGEON. SIGNED OFF AT THIS TIME.
[2025-11-08 16:00] VITALS: BP_SYST 117; BP_SYST 125; BP_DIAS 66; BP_DIAS 69; PULSE 61; PULSE 75; RESP 20; TEMP 97.7; TEMP 98
--- NOTE | 2025-11-08 16:28 | NUR ---
new consult attempt to call office and no answer. consult pending.
[2025-11-08 20:00] VITALS: BP 122/63; PULSE 75; RESP 18; TEMP 98.5
[2025-11-09] VITALS (8 sets, daily range): BP systolic 115–142; BP diastolic 61–76; PULSE 65–74; RESP 18–20; TEMP 97.5–98.1; O2SAT 95–96
--- NOTE | 2025-11-09 03:17 | PN ---
SUBJECTIVE: The patient significantly improved. Sitting on a chair. Had bowel movements. Abdominal pain has decreased significantly. He continues with IV Zosyn, IV fluids. Tolerating clear liquids. OBJECTIVE: GENERAL: Currently awake, alert, oriented in person, time and place. VITAL SIGNS: Blood pressure 129/73, pulse 72, respirations 20. HEENT: He is normocephalic, atraumatic. LUNGS: Clear to auscultation bilaterally. No wheezes, no rhonchi, no rales. HEART: S1 are S2 are distant. ABDOMEN: Prominent, soft, nontender. Bowel sounds are present. No rebound. No hepatosplenomegaly. EXTREMITIES: No clubbing, cyanosis, no edema. LABORATORY DATA: WBC count 5.9, hemoglobin 12.2, platelets 177, sodium 129, potassium 4.2, BUN 9, creatinine 0.9, glucose 124, calcium 8.3, albumin 2.5. Urine cocaine screen positive. Strep A positive, negative influenza. ASSESSMENT AND PLAN: * Abdominal pain with CT scan that was reported with interval development of an ill-defined infectious or inflammatory process around the distal ileal anastomotic site and surrounding peritoneal folds with features of partial bowel obstruction and ileus. Continue with antibiotics. Surgical consultation still pending with the doctor transportation worker. We are going to call Dr. Self, surgeon who performed a previous colectomy. * Sepsis, improving. Continue current antibiotics. * Anemia. Continue to monitor. Transfusion on a p.r.n. basis. * Bilateral pulmonary infiltrates. Positive sputum for strep. Continue with Zosyn. * Follow up in a.m. with results. DOS: 11/08/2025 TID: [id number] RECEIPT: [id number] KARLENE
[2025-11-09 10:07] LABS: IMMATURE GRANULOCYTE ABSOLUTE 0.01 K/uL (0-1); NUCLEATED RED BLOOD CELLS 0.0 % (0.0-0.19); PLATELET COUNT (AUTO) 173 K/uL (130-400); RED BLOOD CELL COUNT(AUTO) 4.17 MIL/uL (4.50-6.20); RED CELL DISTRIBUTION WIDTH 14.4 % (11.0-15.5); WHITE BLOOD COUNT (AUTO) 5.0 K/uL (4.8-10.8)
[2025-11-09 10:16] LABS: CREATININE 0.9 mg/dL (0.5-1.3); GLOMERULAR FILTR. RATE CALC 88.0 mL/min (>90); GLUCOSE,RANDOM 125.0 mg/dL (70-105); SODIUM SERUM 128.0 mmol/L (136-145); UREA NITROGEN, BLOOD 8.0 mg/dL (7-18)
[2025-11-09 10:21] LABS: ASPARTATE AMINOTRANSFERASE 17.0 U/L (10-37); TOTAL PROTEIN, SERUM 6.5 g/dL (6.0-8.3)
[2025-11-10] VITALS (12 sets, daily range): BP systolic 118–134; BP diastolic 53–78; PULSE 68–75; RESP 18–20; TEMP 97.7–98; O2SAT 93–98
[2025-11-10 04:52] LABS: NUCLEATED RED BLOOD CELLS 0.0 % (0.0-0.19); PLATELET COUNT (AUTO) 213.0 K/uL (130-400); RED BLOOD CELL COUNT(AUTO) 4.36 MIL/uL (4.50-6.20); RED CELL DISTRIBUTION WIDTH 14.0 % (11.0-15.5); WHITE BLOOD COUNT (AUTO) 5.4 K/uL (4.8-10.8)
--- NOTE | 2025-11-10 08:08 | HMCIMG ---
EXAM: CT Abdomen and Pelvis Without IV contrast CLINICAL HISTORY: ABDOMINAL PAIN TECHNIQUE: Axial computed tomography images of the abdomen and pelvis without intravenous contrast. CONTRAST: No IV contrast. COMPARISON: None provided. July 02, 2024 FINDINGS: LUNG BASES: The lung bases appear clear. No pleural effusions are seen. LIVER: Unremarkable. GALLBLADDER AND BILE DUCTS: The gallbladder appears within normal limits. No radioopaque gallstones are seen. No biliary ductal dilatation is evident. PANCREAS: Unremarkable. SPLEEN: Unremarkable. ADRENAL GLANDS: Unremarkable. KIDNEYS, URETERS, AND BLADDER: The kidneys appear within normal limits. There is no hydronephrosis or hydroureter. No urinary calculi are seen. STOMACH AND BOWEL: Unremarkable appearance of the stomach and bowel. No evidence of bowel obstruction. No evidence suggesting enteritis or colitis. APPENDIX: No evidence of acute appendicitis on CT examination. PERITONEUM: No free fluid. No free air. There is a ventral hernia containing greater omentum. Previous ostomy has been removed. The segment of intestine has been repositioned within the peritoneal cavity. LYMPH NODES: No lymphadenopathy is evident. REPRODUCTIVE: The prostate is enlarged. VASCULATURE: No evidence of abdominal aortic aneurysm. BONES: No aggressive appearing osseous lesion. No acute osseous pathology evident. Chronic area of fluid within the right external obturator muscle. IMPRESSION: No acute intra-abdominal or pelvic abnormality. Ventral hernia containing greater omentum is noted. /[place]
[2025-11-10 11:02] LABS: CREATININE 0.9 mg/dL (0.5-1.3); GLOMERULAR FILTR. RATE CALC 88.0 mL/min (>90); GLUCOSE,RANDOM 94.0 mg/dL (70-105); SODIUM SERUM 132.0 mmol/L (136-145); UREA NITROGEN, BLOOD 7.0 mg/dL (7-18)
[2025-11-10 11:07] LABS: ASPARTATE AMINOTRANSFERASE 18.0 U/L (10-37); TOTAL PROTEIN, SERUM 6.9 g/dL (6.0-8.3)
--- NOTE | 2025-11-10 13:04 | NUR ---
ROUND AT BEDSIDE. ORDERED LABS FOR TOMORROW AM. WEAN OFF O2, 6 MINUTE WALK. WAITING ON GI. NO FURTHER ORDERS GIVEN.
--- NOTE | 2025-11-10 20:12 | PN ---
SUBJECTIVE: The patient is comfortable, afebrile. No chest pain or palpitations. No nausea or vomiting. OBJECTIVE: GENERAL: He is currently awake, alert, oriented to person, time and place. VITAL SIGNS: In the chart. HEENT: Normocephalic, atraumatic. LUNGS: Clear to auscultation. HEART: S1 and S2 are distant. ABDOMEN: Prominent, soft, nontender. No masses. Bowel sounds are present. EXTREMITIES: No clubbing or cyanosis. LABS: WBC count 5, hemoglobin 12.3, platelets 173. Sodium 128, potassium 4.5, BUN 8, creatinine 0.9. Total bilirubin 0.6. Albumin 2.5. ASSESSMENT AND PLAN: * Abdominal pain with peritoneal reaction, improving. Surgical consultation was still pending. * Sepsis, improving. Continue current antibiotics. * Anemia. Continue to monitor. Stable. * Bilateral pulmonary infiltrates. Positive strep. Continue with Zosyn. * Follow up in a.m. with labs. DOS: 11/09/2025 TID: [id number] RECEIPT: [id number] MTDD
[2025-11-11] VITALS (10 sets, daily range): BP systolic 127–139; BP diastolic 77–83; PULSE 63–80; RESP 17–18; TEMP 97.8–98.3; O2SAT 91–98
--- NOTE | 2025-11-11 00:49 | PN ---
SUBJECTIVE: The patient significantly improves. No fever or chills. No chest pain, palpitations. No nausea or vomiting. Continue with oxygen through nasal cannula. Continue with IV antibiotics. Surgical consultation pending. OBJECTIVE: GENERAL: He is currently awake, alert, oriented to person and place, not in distress. VITAL SIGNS: In the chart. HEENT: Normocephalic, atraumatic. PERRLA. [place] and moist oral mucosa. NECK: Supple. No jugular venous dilation. No carotid bruit. No goiter. LUNGS: Clear to auscultation bilaterally. HEART: S1, S2 are distant. ABDOMEN: Soft, nontender. EXTREMITIES: No clubbing or cyanosis. No edema. LABORATORY DATA: WBC count is 5.4, hemoglobin 12.8, platelets 213. Sodium 132, potassium 4, BUN 7, creatinine 0.9, albumin 2.7. ASSESSMENT AND PLAN: * Abdominal pain, improving. CT scan report is within normal limits. Continue to monitor. Continue current antibiotic therapy. * Sepsis controlled. Continue current antibiotics. * Anemia, mild. Continue to monitor. * Bilateral pneumonia. Continue with Zosyn. * Respiratory failure with hypoxemia. We are going to titrate oxygen to off, have him walk 6 minutes and reevaluate him for oxygen saturation. Follow up in the a.m. with labs. DOS: 11/10/2025 TID: [id number] RECEIPT: [id number] MTDAlma
[2025-11-11 04:32] LABS: NUCLEATED RED BLOOD CELLS 0.0 % (0.0-0.19); PLATELET COUNT (AUTO) 242.0 K/uL (130-400); RED BLOOD CELL COUNT(AUTO) 4.81 MIL/uL (4.50-6.20); RED CELL DISTRIBUTION WIDTH 13.8 % (11.0-15.5); WHITE BLOOD COUNT (AUTO) 6.7 K/uL (4.8-10.8)
--- NOTE | 2025-11-11 18:01 | CONS ---
GASTROENTEROLOGY CONSULTATION NOTE Date of Consultation: Nov 11, 2025 Time of Consultation: 17:59 History of Present Illness: [ This is a 75-year-old male patient presented to the emergency room with complaints of right upper quadrant pain and right lower quadrant pain with nausea and vomiting. Patient with past medical history for Low anterior resection with diverting ileostomy due to rectal cancer on 04/18/2024 and closure ileostomy on 08/08/2024. We were consulted for tender abdominal pain. Patient's initial WBC of 11.2 has trended down to 6.7, hemoglobin 14, hematocrit 43.0, chemistries significant sodium of 132, chloride 97, alkaline phosphatase of 189, albumin 2.7. Urine toxicology positive for cocaine. Patient also positive for group A strep infection. CT of abdomen and pelvis w/contrast on 11/05/25, showing interval development of an ill-defined infectious or inflammatory process around the distal ileal anastomotic site and surrounding peritoneal folds with features of partial bowel obstruction and ileus. Pneumatosis or bowel perforation is evident at this time. Umbilical hernia containing a portion of the omentum. Mild constipation is present in the colon. Bowel anastomotic sutures around the rectosigmoid region. Nonspecific scarring in the presacral fat pad. Mild prostatomegaly. Mild chronic cystitis. Chest x-ray on 04/02/2025 showing scattered air-filled loops of small bowel, nonspecific. And mild stool burden in the colon. CT of abdomen and pelvis on 11/09/2025 without contrast showing no acute intra-abdominal or pelvic abnormality. Ventral hernia containing greater omentum is noted. No evidence of bowel obstruction. Unremarkable appearance of the stomach and bowel. Patient had undergone a colonoscopy on 11/01/2025 and was found to have a benign-appearing intrinsic stenosis measuring 10 cm in length was found at the anastomosis and was traversed. Patient pending follow-up on 11/21/2025. ] Review of Systems: CONSTITUTIONAL: No malaise or change in sensation of wellbeing. ENMT: No rhinorrhea, otorrhea, sinus pain, ear ache. CARDIOVASCULAR: No angina, palpitations, orthopnea or paroxysmal dyspnea. RESPIRATORY: No SOB. GASTROINTESTINAL: No abdominal pain, nausea, vomiting, diarrhea, hematemesis, melena or change in the patient's habitual bowel movements consistency/number. GENITOURINARY: No dysuria, hematuria or change in bladder continence. MUSCULOSKELETAL: No new muscle pain or decrease in muscular strength. No new joint swelling, redness or tenderness. SKIN: No new rash. Past Medical History: Hypertension, dyslipidemia, chronic anticoagulation, colon cancer status post colon resection. Surgical History Colon cancer s/p colon resection SOCIAL HISTORY: The patient has history of cocaine abuse. Coded Allergies: No Known Drug Allergies (Unverified Allergy, Unknown, 10/07/21) Physical Exam: GEN: Awake, alert, oriented in person, time and place, and in no acute distress. HEENT: No rhinorrhea. Oral pharyngeal mucosa is pink, moist and within normal limits. CHEST: Lung auscultation revealed normal breath sounds bilaterally. CARDIAC:Heart sounds are regular. ABD: Soft, non-tender and not distended. No peritoneal signs on palpation. Normal bowel sounds. Last bm EXT: No cyanosis or clubbing. No edema. SKIN: Intact. No rashes. NEURO: Alert and oriented to name, place and person.No focal motor deficits. Normal speech. l. Vital Sign (Last 24 Hours) 11/11/25 11/11/25 11/11/25 08:00 11:36 15:33 Temp 98.1 Pulse 75 Resp 17 B/P (MAP) 127/77 Pulse Ox 95 O2 Delivery Room Air O2 Flow Rate 0 FiO2 21 Intake & Output (last 24hrs) 11/10/25 11/10/25 11/11/25 15:00 23:00 07:00 Intake Total 140.0 ml Output Total 1800 ml Balance -1800 ml 140.0 ml Laboratory: [ ] Laboratory: Test 11/11/25 04:14 11/10/25 04:32 Range/Units White Blood Count 6.7 4.8-10.8 K/uL Red Blood Count 4.81 4.50-6.20 MIL/uL Hemoglobin 14.0 14.0-18.0 g/dL Hematocrit 43.0 42-54 % Mean Corpuscular Volume 89.4 79-99 fL Mean Corpuscular Hemoglobin 29.1 27.0-33.0 pg Mean Corpuscular Hemoglobin Concent 32.6 32.0-36.0 g/dL Red Cell Distribution Width 13.8 11.0-15.5 % Platelet Count 242 130-400 K/uL Mean Platelet Volume 9.1 7.5-10.5 fL Nucleated Red Blood Cells 0.0 0.0-0.19 % Sodium Level 132 L 136-145 mmol/L Potassium Level 4.0 3.5-5.1 mmol/L Chloride Level 97 L 101-111 mmol/L Carbon Dioxide Level 29 21-32 mmol/L Blood Urea Nitrogen 7 7-18 mg/dL Creatinine 0.9 0.5-1.3 mg/dL Glomerular Filtration Rate Calc 88 >90 mL/min Random Glucose 94 70-105 mg/dL Total Calcium 8.7 8.5-10.1 mg/dL Total Bilirubin 0.7 0.2-1.0 mg/dL Aspartate Amino Transf (AST/SGOT) 18 10-37 U/L Alanine Aminotransferase (ALT/SGPT) 20 # 12-78 U/L Alkaline Phosphatase 189 H 50-136 U/L Total Protein 6.9 6.0-8.3 g/dL Albumin 2.7 L 3.5-5.0 g/dL Current Medications Medications (Trade) Dose Ordered Sig/Ac Route PRN Reason Start Time Stop Time Status Last Admin Dose Admin Acetaminophen (TYLenol 500MG TAB) 1,000 mg Q8H5 PRN PO TEMPERATURE GREATER THAN 100.4 11/06/25 02:00 12/06/25 01:59 11/06/25 09:46 1,000 MG Acetaminophen (acetaMINOPHEN 1,000MG/100ML) 1,000 mg Q6H6 PRN IVPB MILD PAIN (1-3) 11/06/25 12:00 12/06/25 11:59 11/06/25 11:45 1,000 MG Apixaban (EliquIS) 5 mg BID PO 11/09/25 21:00 12/09/25 20:59 11/11/25 08:20 5 MG Bisacodyl (DulcoLAX) 10 mg DAILY RC 11/07/25 16:00 11/09/25 09:01 DC 11/09/25 07:45 10 MG Dextrose (D50w) 50 ml AD PRN IV HYPOGLYCEMIA PROTOCOL 11/06/25 02:00 12/06/25 01:59 Dextrose/Sodium Chloride 1,000 ml @ 75 mls/hr [id number] IV 11/06/25 02:00 12/06/25 01:59 11/11/25 15:41 75 MLS/HR Glucagon (Glucagon 1mg Kit) 1 mg AD PRN IM HYPOGLYCEMIA PROTOCOL 11/06/25 02:00 12/06/25 01:59 Ipratropium [place] (AtrovENT UD) 0.5 MG [id number] IH 11/09/25 14:00 12/09/25 13:59 11/11/25 11:07 0.5 MG Morphine Sulfate (morPHINE 2MG SYG) 2 mg Q6H PRN IVP SEVERE PAIN (7-10) 11/06/25 02:00 11/11/25 04:59 DC 11/06/25 03:49 2 MG Ondansetron HCl (zoFRAN 4MG INJ) 4 mg Q6H PRN IVP NAUSEA/VOMITING 11/06/25 02:00 12/06/25 01:59 Pantoprazole Sodium (PROTonix 40MG INJ) 40 mg BID IVP 11/07/25 21:00 12/07/25 20:59 11/11/25 08:19 40 MG Piperacillin Sod/ Tazobactam Sod (Zosyn 3.375gm+NS 50ml) 3.375 gm Q8H IV 11/06/25 09:00 11/16/25 08:59 11/11/25 17:11 3.375 GM Potassium Chloride 100 ml @ 100 mls/hr AD PRN IV POTASSIUM PROTOCOL 11/06/25 02:00 12/06/25 01:59 Potassium Chloride (K-Dur 10meq Sr Tab) 10 meq AD PRN PO POTASSIUM PROTOCOL 11/08/25 08:00 12/06/25 01:59 Potassium Chloride (K-Dur/Klor-Con 20meq) 10 meq AD PRN PO POTASSIUM PROTOCOL 11/06/25 02:00 11/08/25 07:36 DC Potassium Chloride (KCl 10% Elixir 20meq/15ml) 10 meq AD PRN PO POTASSIUM PROTOCOL 11/06/25 02:00 12/06/25 01:59 Diagnostics / Radiology: [COPY/PASTE HERE IF NO REPORTS PLEASE DELETE SECTION] Assessment: [Abdominal pain Group A strep infection ] Plan: [ Case discussed with Dr. Hetah No Gi endoscopic intervention recommended at this time given repeat CT scan with no bowel obstruction and recent colonoscopy on 11/01/25. Recommend treating Group A strep infection. Recommend patient f/u at [facility] in 1-2 weeks from discharge. Appt scheduled for 11/21/24 at 10:15am. Please call with questions, concerns, and change in clinical status. Thank you for this consult ] CHESTER GIFFORD Nov 11, 2025 18:01
== END 2025-11-11 18:01 | disposition home or self-care (01) | DRG 871 ==
LOC: EDH 20:16 → EDHIP 11-06 01:35 → 4CH 11-06 03:42 → 2CH 11-06 11:09 → 2BH 11-06 18:02 → 3AH 11-07 17:50
PROVIDERS: ADMIT Internal Medicine; ATTEND Internal Medicine
DX: A41.9 Sepsis, unspecified organism (principal); J18.9 Pneumonia, unspecified organism; J96.91 Respiratory failure, unspecified with hypoxia; J02.0 Streptococcal pharyngitis; B95.0 Streptococcus, group A, as the cause of diseases classified elsewhere; Z79.01 Long term (current) use of anticoagulants; I10 Essential (primary) hypertension; F14.10 Cocaine abuse, uncomplicated; D64.9 Anemia, unspecified; K52.9 Noninfective gastroenteritis and colitis, unspecified; E78.5 Hyperlipidemia, unspecified; N40.0 Benign prostatic hyperplasia without lower urinary tract symptoms; N30.20 Other chronic cystitis without hematuria; K43.9 Ventral hernia without obstruction or gangrene; K42.9 Umbilical hernia without obstruction or gangrene; Z85.048 Personal history of other malignant neoplasm of rectum, rectosigmoid junction, and anus; Z90.49 Acquired absence of other specified parts of digestive tract
CPT/HCPCS: 36415; 71045; 74018; 74176; 74177; 80048; 80053; 80305; 81001; 82948; 83690; 85025; 85027; 87040; 87804; 87880; 94640; 94664; 94760; 96374; 96375; 99285; G0378; J2270; J2405; J2470; J2543; Q9967